=== PATIENT | male | born 1945 | race Caucasian/White ===

== ENCOUNTER 2016-10-19 08:23 | Day surgery (SDC) | payer MEDICARE, BC ==
[2016-10-17 10:25] VITALS: BMI 24.0
[~2016-10-19 08:23] MED LIST: LACTATED RINGERS 1,000 ML IV SCH
[2016-10-19 09:00] VITALS: RESP 16; TEMP 96.9
[2016-10-19] MEDS ORDERED: PROPOFOL 10 MG/ML 20 ML VIAL IV ONE (09:10)
[2016-10-19] MEDS ORDERED: LIDOCAINE 1% INJ 10MG/ML (20 ML MDV) ONE (09:10)
--- NOTE | 2016-10-19 09:56 | P.PCN ---
Date of Procedure: 10/19/16 Procedure(s) Performed: Procedures: 1. Esophagogastroduodenoscopy and biopsy. 2. Total colonoscopy. Preoperative diagnosis: Chronic reflux symptoms and recent change in bowel habits. Postoperative diagnosis: 1. Sliding hiatal hernia and short segment of Reynolsd' s esophagus. 2. Mild antral gastritis. 3. Sigmoid diverticulosis with no evidence of acute diverticulitis or strictures. 4. No polyps or cancer seen. 5. Low-grade internal hemorrhoids not bleeding at the time of this exam. Preparation: HalfLytely prep. Sedation: Was provided by anesthesia. Brief clinical history: The patient is a 70-year-old male who is referred for this evaluation because of chronic reflux symptoms requiring twice a day dosing of PPI as well as recent change in bowel habits with looser more frequent bowel movements. His last colonoscopy was in 2011 and his last upper endoscopy was 2008. Procedure: With the patient on his left lateral decubitus position and after informed consent and adequate sedation, I passed the Olympus-GIF 160 video upper endoscope through the cricopharyngeus down the esophagus. GE junction was around 40 cm from the incisors and there was a short Reynolds's segment as well as a small sliding hiatal hernia. The esophagus did not show any erosions or ulcers or any strictures. The endoscope was then passed into the stomach which was insufflated with air and inspected in detail including the retroflex view in the cardia. There was some mottling and erythema in the antrum but no ulcers or erosions. Pyloric channel, duodenal bulb, post bulbar area and descending duodenum appeared within normal limits. Because of his symptoms I obtained biopsies from the duodenum, antrum and esophagus including separate biopsies from the Reynolds's segment then the endoscope was withdrawn and I proceeded to do colonoscopy. Perianal area did not show any fissures or fistulas. There were no masses felt on digital rectal examination. The Olympus CFQ 160L video colonoscope was then inserted in the rectum in the usual fashion and advanced to the cecum. There were multiple diverticular orifices seen scattered in the sigmoid with no evidence of acute diverticulitis or strictures. No polyps or tumors were seen. In the retroflex view in the rectum, I noted low-grade internal hemorrhoids without any evidence of bleeding. The patient tolerated the procedure well. Plan: The patient was reassured. Will await biopsy results. Discussed dietary measures. I anticipate repeating his upper endoscopy in around 2 years.
[2016-10-19 10:29] VITALS: BP 133/76; PULSE 64
== END 2016-10-19 10:49 | disposition home or self-care (01) ==
LOC: ORWHC2ENDO 08:23
DX: K57.30 Diverticulosis of large intestine without perforation or abscess without bleeding (principal); K29.50 Unspecified chronic gastritis without bleeding; I10 Essential (primary) hypertension; K64.8 Other hemorrhoids; K22.70 Barrett's esophagus without dysplasia; K44.9 Diaphragmatic hernia without obstruction or gangrene; K21.9 Gastro-esophageal reflux disease without esophagitis; J45.909 Unspecified asthma, uncomplicated; Z79.899 Other long term (current) drug therapy
CPT/HCPCS: 88305; 88342; 45378; 43239; J2001; J2704; 99153

== ENCOUNTER → 2018-09-20 | Outpatient (CLI) | payer MEDICARE, BC ==
--- NOTE | 2018-09-20 10:21 | US ---
EXAMINATION TYPE: US venous doppler duplex LE RT DATE OF EXAM: 09/20/2018 10:10 AM COMPARISON: NONE CLINICAL HISTORY: M25.571 PAIN IN RT ANKLE,M79.7 FIBROMYALGIA. Partial achilles tear x 6 weeks ago. Ankle swelling at night. Calf tenderness. No hx of blood clots. Not on blood thinners. SIDE PERFORMED: Right TECHNIQUE: The lower extremity deep venous system is examined utilizing real time linear array sonog arturo with graded compression, doppler sonography and color-flow sonography. VESSELS IMAGED: External Iliac Vein (EIV) Common Femoral Vein Deep Femoral Vein Greater Saphenous Vein * Femoral Vein Popliteal Vein Small Saphenous Vein * Proximal Calf Veins (* superficial vessels) Grayscale, color doppler, spectral doppler imaging performed of the deep veins of the right lower ext remity. There is normal flow, compressibility, vascular waveforms. Right Leg: Negative for DVT IMPRESSION: No sonographic evidence of deep venous thrombosis within the right lower extremity.
== END | disposition home or self-care (01) ==
LOC: RADUSWWP 09:35
PROVIDERS: ATTEND Orthopaedic Surgery
DX: M25.571 Pain in right ankle and joints of right foot (principal)

== ENCOUNTER 2018-10-22 09:22 | Day surgery (SDC) | payer MEDICARE, BC ==
[2018-10-21 15:48] VITALS: BMI 24.4
[~2018-10-22 09:22] MED LIST changes: +LIDOCAINE 1% 20 ML VIAL (10MG/ML) FOR IV START INTRADERMA PRN; +MIDAZOLAM (PF) 2 MG/2 ML VIAL IV PRN
[2018-10-22 11:07] VITALS: RESP 16; TEMP 97.4
[2018-10-22] MEDS ORDERED: MIDAZOLAM 2 MG/2 ML VIAL ONE (11:21)
[2018-10-22] MEDS ORDERED: PROPOFOL 10 MG/ML 20 ML VIAL IV ONE (11:21)
[2018-10-22 11:51] VITALS: PULSE 78
[2018-10-22 12:16] VITALS: BP 114/73
--- NOTE | 2018-10-22 12:46 | P.PCN ---
Date of Procedure: 10/22/18 Procedure(s) Performed: Procedure: Esophagogastroduodenoscopy and biopsy. Preoperative diagnosis: History of Reynolds's esophagus. Postoperative diagnosis: Small sliding hiatal hernia and short segment of Reynolds's, multiple biopsies obtained from the Reynolds's segment. Preparation and sedation: Was provided by anesthesia. Brief clinical history: The patient is a 72-year-old male with history of Reynolds's esophagus. His last exam was in October 2016. Biopsies showed intestinal metaplasia consistent with Reynolds's esophagus and it was negative for dysplasia. The patient has been having issues of heartburn over the last several months despite taking PPI and H2 blockers in a twice a day regimen. Procedure: With the patient on his left lateral decubitus position and after informed consent and adequate sedation, I passed the Olympus-GIF H1 90 video upper endoscope through the cricopharyngeus down the esophagus. GE junction was irregular and started around 40 cm from the incisors and there was a short segment of Reynolds's and a small hiatal hernia as previously described measuring between 2-3 cm. There was no inflammation in the esophagus or any scarring. The endoscope was then passed into the stomach which was insufflated with air and inspected in detail including the retroflex view in the cardia. Finally, the endoscope was passed through the pylorus into the duodenum. The stomach, pyloric channel, duodenal bulb, post bulbar area and descending duodenum appeared within normal limits. I obtained multiple biopsies from the Reynolds's segment then the endoscope was withdrawn. The patient tolerated the procedure well. Plan: The patient was reassured. Will await biopsy results. Discussed dietary measures and antireflux measures and suggestions to optimize the timing of his meals and his medications. I anticipate repeating his upper endoscopy in 3 years. He will follow up with you as planned and I will be happy to see in the office if he has any issues.
== END 2018-10-22 12:28 | disposition home or self-care (01) ==
LOC: ORWHC2ENDO 09:22
DX: K22.70 Barrett's esophagus without dysplasia (principal); K21.9 Gastro-esophageal reflux disease without esophagitis; K44.9 Diaphragmatic hernia without obstruction or gangrene; I10 Essential (primary) hypertension; M79.7 Fibromyalgia; M54.9 Dorsalgia, unspecified; N40.0 Benign prostatic hyperplasia without lower urinary tract symptoms; Z79.891 Long term (current) use of opiate analgesic; Z79.899 Other long term (current) drug therapy
CPT/HCPCS: 88305; 43239; J2250; J2704

== ENCOUNTER 2021-04-18 08:34 | Day surgery (SDC) | payer MEDICARE, BC ==
[2021-04-13 11:14] VITALS: BMI 23.7
[~2021-04-18 08:34] MED LIST changes: +LIDOCAINE 1% (10MG/ML) FOR IV START INTRADERMA PRN; -LIDOCAINE 1% 20 ML VIAL (10MG/ML) FOR IV START INTRADERMA PRN; -MIDAZOLAM (PF) 2 MG/2 ML VIAL IV PRN
[2021-04-18 09:04] VITALS: RESP 16; TEMP 98.4
[2021-04-18] MEDS ORDERED: PROPOFOL 10 MG/ML 20 ML VIAL IV ONE (09:05)
[2021-04-18] MEDS ORDERED: LIDOCAINE 1% INJ 10MG/ML (20 ML MDV) ONE (09:05)
--- NOTE | 2021-04-18 09:42 | P.PCN ---
Date of Procedure: 04/18/21 Description of Procedure: Brief history: Patient is a 75-year-old male presenting for outpatient EGD and colonoscopy for evaluation of Reynolds's esophagus and hemorrhoid of the colon. Patient previously had EGD with findings of Reynolds's esophagus and is been monitored. He is on omeprazole therapy. Last colonoscopy in 2017. Denies any family history of colon cancer. Procedure performed: Esophagogastroduodenoscopy with biopsy Colonoscopy Estimated blood loss: Minimal. Preoperative diagnosis: Reynolds's esophagus, hemorrhoids of the colon, last colonoscopy 2016 Anesthesia: MAC Procedure: After informed consent was obtained from the patient was brought into the endoscopy unit and IV sedation was administered by anesthesia under continuous monitoring. Initially upper endoscopy was done. The Olympus GF 190 video endoscope was inserted into the mouth and esophagus intubated without any difficulty and was gradually advanced into the stomach and duodenum and carefully examined. The bulb and second part of the duodenum appeared normal, with biopsies taken. The scope was then withdrawn into the stomach adequately insufflated with air and upon careful examination the antrum and body, cardia and fundus appeared normal, except for some mild punctate scattered erythema in the antrum and body suggestive of mild gastritis with biopsies taken of the antrum and body. The scope was then withdrawn into the esophagus. The GE junction was located at 38 cm to the incisors, with a small hiatal hernia noted. There were a few small tongues of salmon-colored mucosa consistent with history of Reynolds's esophagus with biopsies of lower esophagus taken in this area. It appeared regular with no erythema erosions or ulcerations. Rest of the esophagus appeared normal. Patient tolerated the procedure well. At this time the patient continued to remain sedation. Initial digital rectal examination was normal. Olympus CF 190 video colonoscope was then inserted into the rectum and gradually advanced to the cecum without any difficulty. Careful examination was performed as the scope was gradually being withdrawn. The prep was excellent. The cecum, ascending colon, transverse colon, descending colon, sigmoid colon and rectum appeared normal, multiple small large mouth diverticula noted in the left colon.. Retroflexion was performed in the rectum and no lesions were noted, moderate internal hemorrhoids noted. Patient tolerated the procedure well. Impression: 1. Mild gastritis. Small hiatal hernia. Reynolds's esophagus. Biopsies of the duodenum, antrum body and lower esophagus. 2. Moderate left colonic diverticulosis. Internal hemorrhoids. Recommendations: Findings of this examination were discussed with the patient as well as his family. Okay to resume diet. Okay to resume medications. Await pathology from biopsies. Continue current medical management. Recommend repeat EGD in 2 years for history of Reynolds's esophagus. Repeat colonoscopy in 10 years for screening for malignant neoplasm of the colon if medically stable at that time and amenable to further screening.
[2021-04-18 10:04] VITALS: BP 127/74; PULSE 62
== END 2021-04-18 10:18 | disposition home or self-care (01) ==
LOC: ORWHC2ENDO 08:34
PROVIDERS: ATTEND Internal Medicine
DX: K29.70 Gastritis, unspecified, without bleeding (principal); K22.70 Barrett's esophagus without dysplasia; K44.9 Diaphragmatic hernia without obstruction or gangrene; K57.30 Diverticulosis of large intestine without perforation or abscess without bleeding; K21.9 Gastro-esophageal reflux disease without esophagitis; K64.8 Other hemorrhoids; Z90.89 Acquired absence of other organs; Z98.890 Other specified postprocedural states; Z79.891 Long term (current) use of opiate analgesic; Z79.899 Other long term (current) drug therapy
CPT/HCPCS: 88305; 45378; 43239; J2001; J2704

== ENCOUNTER → 2021-04-25 | Outpatient (CLI) | payer MEDICARE, BC ==
[2021-04-25 12:27] VITALS: BP 157/86; PULSE 74; RESP 18; TEMP 98
--- NOTE | 2021-04-25 12:56 | P.PAINCN ---
History of Present Illness - Reason for Consult Consult date: 04/25/21 - History of Present Illness 72 see his old male with a chronic history of severe neck pain and low back pain, he is diagnosed with lumbar spondylosis with lumbar facet arthropathy and lumbar radiculopathy and cervical spondylosis with cervical facet arthropathy and cervical foraminal stenosis, cervical degenerative disc disease, and was treated at [facility] ,he had RFA of the medial branch lumbar area,A transforaminal epidural and cervical epidural steroid injection, tima Martínez reported that he had excellent pain relief after interventional pain procedure, and he is complaining of severe low back pain which is constant and increases with any activity, interfer with the quality of life, she currently uses Celebrex and alternatives without any significant relief he tried physical therapy and his currently doing home exercise, he continued to have severe pain, and still the pain is 7/10 increased with any activity, he denies any motor or sensory deficit he denies any fever or night sweats Past Medical History Past Medical History: Fibromyalgia, GERD/Reflux, Hypertension, Prostate Disorder Additional Past Medical History / Comment(s): CHRONIC BACK PAIN, STATES HTN IS CONTROLLED BY TERAZOSIN, Reynolds's esophagus History of Any Multi-Drug Resistant Organisms: None Reported Past Surgical History: Orthopedic Surgery, Tonsillectomy Additional Past Surgical History / Comment(s): LUPILLO CATARACTS, PAIN INJECTIONS FOR BACK, LEFT WRIST BONE GRAFT, LEFT WRIST CARPAL TUNNEL, EGD,colonoscopy Past Anesthesia/Blood Transfusion Reactions: No Reported Reaction Smoking Status: Never smoker - Past Family History Brother(s) Family Medical History: Cancer Additional Family Medical History / Comment(s): LUNG Medications and Allergies Home Medications Medication Instructions Recorded Confirmed Type Montelukast [Singulair] 10 mg PO DAILY PRN 10/17/16 04/25/21 History Omeprazole 40 mg PO BID 10/17/16 04/25/21 History Terazosin [Hytrin] 2 mg PO HS 10/17/16 04/25/21 History traMADol HCL [Ultram] 50 mg PO Q6H PRN 10/17/16 04/25/21 History Fluticasone Nasal [place] [Flonase 2 spr EA NOSTRIL DAILY 10/21/18 04/25/21 History Nasal [place]] Celecoxib [CeleBREX] 400 tab PO DAILY PRN 10/22/18 04/25/21 History Famotidine [Pepcid] 40 mg PO DAILY 04/13/21 04/25/21 History Melatonin 5 mg PO HS PRN 04/13/21 04/25/21 History diphenhydrAMINE [Benadryl] 50 mg PO HS PRN 04/13/21 04/25/21 History Allergies Allergy/AdvReac Type Severity Reaction Status Date / Time No Known Allergies Allergy Verified 04/20/21 09:23 Physical Exam Vitals: Vital Signs Temp Pulse Resp BP Pulse Ox 04/25/21 12:21 98.0 F 74 18 157/86 99 Physical Examinations : -Constitutiona : Cooperative , not in acute distress . -HEENT : nech : supple , no Lymphadenopathy , normal thyroid size . : eyes : no ptosis , no icterus, no photophobia . - neurologic : Cranial nerve II to XII intact , no focal neurological deffecit . -psychatric : alert , oriented X 3 , appropriate affect , intact judgment and insight . -Lymphatic : no Lymphadenopathy . - musculoskeltal : Cervical Spine motor stregnth in the deltoid and biceps, normal right side , normal Left side motor stregnth biceps and the wrist extensors normal right side ,normal left side . motor stregnth in the triceps muscle . normal Right side , normal Left side deep tendon reflexes normal at the biceps , normal at Brachioradialis , normal at triceps. cervical facet loading test: Positive Bilaterally Spurling test= positive Right , positive left. Neck distraction test= positive Right , positive left. Yuridia sign= positive right, positive left . Lumber spine moter stegnth lower extremities ,thigh and legs 5/5 Right side , 5/5 Left side deep tendon reflexes : normal Knee Jerk , normal ankle Jerk lumber facet Loading Test =positive Right , positive Left Range of motion of the lumbar spine Flexion 30 degrees, extension 10 degrees strait leg raising test = positive at 30 degree Fabere test= positive Right , and positive LT . tenderness over the Sacroiliac joint on the Right , and Left sides Results Comments: MRI of the lumbar spine multilevel lumbar degenerative disc disease and borderline central canal stenosis and multilevel lumbar facet arthropathy MRI of the cervical spine multilevel degenerative disc disease and foraminal stenosis and facet arthropathy Assessment and Plan Plan: Assessment and plan=1-lumbar degenerative disc disease. 2-lumbar spondylosis with lumbar facet arthropathy. 3-cervical degenerative disc disease. 4-cervical spondylosis with cervical facet arthropathy. he could benefit from repeat RFA of the medial branch lumbar area at L3, L4, L5, bilaterally Time with Patient: Greater than 30 PQRS Measure Charge Sheet Measure #130: Documentation of Current Meds in Medical Chart: Patient's medications documented in chart Measure #226: Tobacco Use: Screen & Cessation Intervention: Pt not a tobacco user Measure #111: Pneumonia Vaccination: Pneumococcal vaccine NOT administered or previously given Measure #47: Advance Care Plan: Advance care planning discussed & documented, pt chose/unable to give Measure #412: Opioid Treatment Agreement: No documentation of signed opioid treatment agreement Measure #408: Opioid Therapy Follow-up Evaluation: Patient had NO f/u eval minimum every 3 months during opioid therapy Measure #317: Preventitive Care & Scrn High Bld Press & F/U: Pre-hypertensive or hypertensive BP documented, pt will f/u with PCP Measure #128: Body Mass Index (BMI) Screening & Follow-up: BMI documented within normal parameters Measure #131: Pain Assessment & Follow-up: Pain positive & plan documented, Follow-up scheduled Measure #431: Unhealthy Alcohol Use Preventative Care & Scrn: Patient not identified as an unhealthy alcohol user PQRS Narrative: Smoking Status Never smoker Blood Pressure 157/86 Pain Intensity [Neck] 8 Pain Intensity [Lower Back] 6 Scale Used Numeric (1 - 10) Hx Alcohol Use (MH) Yes Home Medications: Ambulatory Orders Montelukast [Singulair] 10 mg PO DAILY PRN 10/17/16 Omeprazole 40 mg PO BID 10/17/16 Terazosin [Hytrin] 2 mg PO HS 10/17/16 traMADol HCL [Ultram] 50 mg PO Q6H PRN 10/17/16 Fluticasone Nasal [place] [Flonase Nasal [place]] 2 spr EA NOSTRIL DAILY 10/21/18 Celecoxib [CeleBREX] 400 tab PO DAILY PRN 10/22/18 Famotidine [Pepcid] 40 mg PO DAILY 04/13/21 Melatonin 5 mg PO HS PRN 04/13/21 diphenhydrAMINE [Benadryl] 50 mg PO HS PRN 04/13/21
== END | disposition home or self-care (01) ==
LOC: PNWHC3 12:12
PROVIDERS: ATTEND Specialist
DX: M41.26 Other idiopathic scoliosis, lumbar region (principal); M47.896 Other spondylosis, lumbar region; M51.36 Other intervertebral disc degeneration, lumbar region; M48.061 Spinal stenosis, lumbar region without neurogenic claudication; M46.96 Unspecified inflammatory spondylopathy, lumbar region
CPT/HCPCS: 99211

== ENCOUNTER 2021-05-13 11:16 | Day surgery (SDC) | payer MEDICARE, BC ==
[2021-05-10 15:14] VITALS: BMI 23.1
[2021-05-13 11:49] VITALS: TEMP 97.2
[2021-05-13] MEDS ORDERED: LACTATED RINGERS 1,000 ML IV ONE ×3 (11:50→12:33)
[2021-05-13] MEDS ORDERED: methylPREDNISolone ACETATE 40 MG/ML 1 ML VIAL ONE (11:58)
[2021-05-13] MEDS ORDERED: ROPIVACAINE 5MG/ML 20ML VIAL ONE (11:58)
[2021-05-13] MEDS ORDERED: MIDAZOLAM 2 MG/2 ML VIAL ONE (12:00)
[2021-05-13] MEDS ORDERED: fentaNYL (PF) 50 MCG/ML 2 ML AMP ONE (12:00)
--- NOTE | 2021-05-13 12:30 | P.PCN ---
Date of Procedure: 05/13/21 Procedure(s) Performed: PREOPERATIVE DIAGNOSIS: 1-Lumbar Spondylosis with Facet Arthropathy without myelopathy. 2- Lumber degenerative disc disease. POSTOPERATIVE DIAGNOSIS: 1- Lumbar Spondylosis with Facet Arthropathy without myelopathy. 2- Lumber degenerative disc disease. PROCEDURES : Bilateral Radiofrequency thermocoagulation, L3 , L4 , and L5 medial branch, with fluoroscopic guidance (fluoroscopy images available in the radiology department) ( to denervate the facet joint at Bilateral L4-5 ,and L5-S1 levels ). ANESTHESIA: monitered anesthesia care ,as per anesthesia department . EBL: Minimal PROCEDURE INDICATION: The patient with low back pain secondary to lumbar facet arthropathy who had more than 50% relief of her pain with previous diagnostic lumbar medial branch block with bupivacaine. PROCEDURE DESCRIPTION / TECHNIQUE: The patient was seen and identified in the preoperative area. Risks, benefits, complications, including but not limited to risk of infection ,bleeding , allergic reactions to the medications and no complete pain releife , and alternatives were discussed with the patient, the patient agreed to proceed with the procedure and signed the consent. IV was started. Vital signs remained stable throughout the procedure. Patient was taken to the OR and time out was completed. The patient was placed in the prone position on the procedure table. The lumber area was prepped and draped in the usual sterile fashion. . Vital signs were closely monitored during the procedure .IV sedation was used during the procedure to decrease patients anxiety. Using AP and then oblique fluoroscopy, the ``eye of the Edenilson dog co rresponding to the connection between the superior and transverse articular processes of right L3, L4, and L5 were identified, marked, and localized with 1% lidocaine. Subsequently, a [id number] radiofrequency cannula with a 10- mm active tip was advanced guided by fluoroscopy to each of the``eyes of the Edenilson dog at right L3, L4, and L5. Each site then underwent sensory testing at 50 Hz and 0 to 1 volt and motor testing at 2.5 Hz and 0 to 3 volt with local stimulation, but no radicular symptoms down the legs. Thereafter each sites underwent radiofrequency thermocoagulation at 80 degrees celsius for 90 seconds after injecting 0.5 ml of PF Ropivacaine 1ml, then after the thermocoagulation done , 1 ml of the block solution containing Depo-Medrol 20 mg and 3 ml of Ropivacaine 0.5% was injected at the right L3 , L4 , and L5 , levels after negative aspiration of CSF and blood and with no paresthesias. Cannulas were retracted while injecting lidocaine 1% until the needle is out. The same procedure was repeated at the level of Left L3, L4, and L5 levels. At the end of the procedure, the skin was cleansed and bandages were applied. COMPLICATIONS: No acute complications. DISPOSITION / PLANS: The patient was placed in a supine position and transferred to the recovery area in a stable condition for observation and was discharged from the recovery room after meeting discharge criteria. Home discharge instructions given to the patient by the staff. The patient was reexamined prior to discharge. The patient will schedule a follow up in the clinic in 2-4 weeks.
[2021-05-13 12:36] VITALS: RESP 16
[2021-05-13 12:49] VITALS: BP 144/84; PULSE 63
[2021-05-13] MEDS ORDERED: IV FLUID CONTINUATION 550 ML IV ONE (12:54)
--- NOTE | 2021-05-13 13:48 | FL ---
Fluoroscopy HISTORY: Pain 12 seconds fluoroscopy time supplied to the referring clinician. 6 intraoperative C-arm images docum ent the procedure. See dictated report from anesthesia.
== END 2021-05-13 13:03 | disposition home or self-care (01) ==
LOC: ORPAIN 11:16
PROVIDERS: ATTEND Specialist
DX: M47.816 Spondylosis without myelopathy or radiculopathy, lumbar region (principal); M51.36 Other intervertebral disc degeneration, lumbar region
CPT/HCPCS: 64635; 64636; J2250; J1030; J3010; J2795

== ENCOUNTER → 2021-06-13 | Outpatient (CLI) | payer MEDICARE, BC ==
[2021-06-13 14:06] VITALS: BP 163/84; PULSE 75; RESP 18; TEMP 97.8
--- NOTE | 2021-06-13 14:11 | P.PAINPG ---
Subjective Progress Note Date: 06/13/21 Principal diagnosis: Neck pain, and lumbar back pain Mr. Dobbs is a 75 -year-old pleasant male came to the [facility] pain clinic for follow-up visit . Patient has ongoing pain for many years for lumbar back pain, and cervical area . patient had cervical epidural in 2018 at [facility] which helped tremendous pain relief for more than a year. Patient describes pain is aching, throbbing, constant type of pain. Pain is radiating to bilateral mid arm area, not going below the elbow. Patient rated pain levels are 7-8 out of 10 in severity. Patient had great pain relief with bilateral lumbar radiofrequency ablation. Still helping him. Activities making pain worse. Medications, resting, interventional procedures helping in relieving patient's pain. Patient pain some days better than others. Overall activities decreased secondary to pain. Because of the pain sometimes patient is feeling lack of sleep, interest, and energy. Denied any side effects with the medications. Denied any bowel or bladder problems at this time. Patient is not using any walking support. Patient denies any suicidal or homicidal ideations intent or plan. Patient denies any auditory or visual hallucinations. Patient denied any red flag symptoms related to pain. Objective - Vital Signs Vital signs: Intake & Output 06/12/21 06/13/21 06/13/21 18:59 06:59 18:59 Weight 79.379 kg - Exam General: Well-developed, well-nourished, no acute distress HEENT: Normocephalic, and atraumatic Neck: Supple, no neck swelling Psychiatric: Appropriate mood, and affect RADIATION ONCOLOGY THERAPIST: No noticeable focal neurological deficits Musculoskeletal: Upper extremity: Normal strength, and range of motion. Sensation grossly intact Lower extremity: Normal strength, and range of motion Lumbar spine: Paravertebral tenderness: positive Lumbar facet load test : positive Strait leg raising test: Negative Sacroiliac joint tenderness: Positive Cervical spine: Paravertebral tenderness: Positive Cervical spine facet curtis: Positive Cervical spine Spurling test: Negative - Constitutional Constitutional Comment(s): 13 point review of symptoms negative except as mentioned in the history of present illness. Assessment and Plan Assessment: Lumbar spondylosis without myelopathy Myofascial pain syndrome, and chronic pain syndrome Cervical spondylosis without myelopathy Cervical disc protrusion at C6-C7, and C5-C6 Plan: #1 psychological risk tools were reviewed. Diagnoses, prognosis, and multiple treatment options including but not limited to physical therapy, interventional therapy, adjunct medication therapy, complementary alternative medicine options, narcotic medication, and surgical options were discussed with the patient. And all questions were answered to the patient's satisfaction. #2 treatment plan agreement : Patient was thoroughly discussed regarding the treatment options, alternatives, and importance of exercises as tolerated. Patient clearly understood. #3 Patient was counseled on importance of regular exercise. Including eliecer chi, aerobic exercises as tolerated. Which helps for chronic pain, and overall well- being. Patient also counseled regarding importance of weight control role in chronic pain, and overall other health issues. By altering diet habits, minimizing sugar intake, & processed foods helps in minimizing Inflammation. #4 investigations: MAPS- reviewed , urine drug test- not done #5 diagnostic tests: None #6 consultation : None # 7 interventional procedures: Cervical C6-C7 epidural steroid injection . Procedure, complications, alternatives discussed with the patient. #8 medications #1 magnesium oxide 400 mg by mouth daily Medication side effects, complications, long-term consequences discussed with the patient. Patient recommended to contact the pain clinic if noticed any issues with given medications. #9 morphine milligrams equivalents dose ( MME) per day: 0 from the pain clinic. #10 disposition: scheduled to follow up with pain clinic in 4 weeks duration. PQRS Measure Charge Sheet Measure #130: Documentation of Current Meds in Medical Chart: Patient's medications documented in chart Measure #226: Tobacco Use: Screen & Cessation Intervention: Pt not a tobacco user Measure #111: Pneumonia Vaccination: Pneumococcal vaccine administered or previously received Measure #47: Advance Care Plan: Advance care planning discussed & documented, plan or surrogate given Measure #412: Opioid Treatment Agreement: No documentation of signed opioid treatment agreement Measure #408: Opioid Therapy Follow-up Evaluation: Patient had NO f/u eval minimum every 3 months during opioid therapy Measure #317: Preventitive Care & Scrn High Bld Press & F/U: Pre-hypertensive or hypertensive BP documented, pt will f/u with PCP Measure #128: Body Mass Index (BMI) Screening & Follow-up: BMI documented within normal parameters Measure #131: Pain Assessment & Follow-up: Pain positive & plan documented Measure #431: Unhealthy Alcohol Use Preventative Care & Scrn: Patient not identified as an unhealthy alcohol user PQRS Narrative: Smoking Status Never smoker Home Medications: Ambulatory Orders Montelukast [Singulair] 10 mg PO DAILY PRN 10/17/16 Omeprazole 40 mg PO BID 10/17/16 Terazosin [Hytrin] 2 mg PO HS 10/17/16 traMADol HCL [Ultram] 50 mg PO Q6H PRN 10/17/16 Fluticasone Nasal [place]on [Flonase Nasal [place]] 2 spr EA NOSTRIL DAILY PRN 10/21/18 Celecoxib [CeleBREX] 400 tab PO DAILY PRN 10/22/18 Famotidine [Pepcid] 40 mg PO DAILY 04/13/21 Melatonin 5 mg PO HS PRN 04/13/21 diphenhydrAMINE [Benadryl] 50 mg PO HS PRN 04/13/21 Controlled Substance Measures - Controlled Substance Measures Is patient prescribed a controlled substance at discharge?: No
== END | disposition home or self-care (01) ==
LOC: PNWHC3 13:22
DX: M47.816 Spondylosis without myelopathy or radiculopathy, lumbar region (principal); M47.892 Other spondylosis, cervical region; M50.223 Other cervical disc displacement at C6-C7 level
CPT/HCPCS: 99211

== ENCOUNTER 2021-07-05 06:11 | Day surgery (SDC) | payer MEDICARE, BC ==
[2021-07-04 11:18] VITALS: BMI 23.1
[~2021-07-05 06:11] MED LIST changes: -LIDOCAINE 1% (10MG/ML) FOR IV START INTRADERMA PRN
[2021-07-05 06:45] VITALS: TEMP 97
[2021-07-05] MEDS ORDERED: IOPAMIDOL M200 10 ML VIAL ONE (06:56)
[2021-07-05] MEDS ORDERED: DEXAMETHASONE SOD PHOSPHATE 10 MG/ML 1 ML VIAL ONE (06:56)
[2021-07-05] MEDS ORDERED: MIDAZOLAM 2 MG/2 ML VIAL ONE (06:56)
[2021-07-05] MEDS ORDERED: fentaNYL (PF) 50 MCG/ML 2 ML AMP ONE (06:56)
--- NOTE | 2021-07-05 07:15 | P.PCN ---
Date of Procedure: 07/05/21 Procedure(s) Performed: . PROCEDURE 1. Cervical epidural steroid injection under fluoroscopic guidance, C6-7 (fluoroscopy images available in the radiology department ) 2. Cervical epidurogram. PREOPERATIVE DIAGNOSIS: 1- Cervical Degenerative Disc Diseases 2-cervical spondylosis with cervical Facet arthropathy without myelopathy POSTOPERATIVE DIAGNOSIS: : 1- Cervical Degenerative Disc Diseases , 2-cervical spondylosis with cervical Facet arthropathy without myelopathy ANESTHESIA: Local anesthesia with lidocaine 1 % , and moderate sedation, with Versed 2 mg and Fentanyl 50 mcg. EBL 0 PROCEDURE INDICATION: The patient with neck pain and radiculitis unresponsive to conservative treatment consents for procedure. PROCEDURE DESCRIPTION / TECHNIQUE: The patient was seen and identified in the preoperative area. Risks, benefits, complications, including but not limited to infections ,bleeding , allergic reactions to the medications ,and not complete pain releife, and alternatives were discussed with the patient, the patient agreed to proceed with the procedure and signed the consent. Patient was taken to the OR and time out was completed. The patient was placed in the prone position on the procedure table. A pillow was placed under the patients chest to increase the cervical interlaminar space. The cervical area was prepped and draped in the usual sterile fashion. Vital signs were closely monitored during the procedure. Conscious sedation was used during the procedure to decrease patients anxiety. Using anterior-posterior fluoroscopy, the C6-7 interlaminar space was identified and the skin over this site was marked and then infiltrated with 1% lidocaine subcutaneously. Subsequently, a 20-gauge 3-1/2-inch Tuohy epidural needle was inserted and advanced toward the epidural space by means of the ``hanging-drop technique and guided by AP and lateral fluoroscopy. The correct needle position in the epidural space was verified with the injection of 2 mL of the water soluble contrast dye Isovue-200 and observing an excellent epidurogram with the epidural spread of the dye, after negative aspiration for blood and CSF and in the absence of paresthesias. then, mixture containing 15 mg Dexamethasone and 2 ml of preservative-free normal saline injected and a washout of epidurogram was seen. Needle was withdrawn intact, skin was cleansed, and bandages were applied. Complications= none. Disposition= patient was placed in supine position and transferred to the recovery room area in stable condition and there was no evidence of upper or lower extremity motor or sensory deficit after the procedure patient was discharged from recovery room after discharge criteria met and home discharge instructions was given by the staff and patient will follow with the pain clinic in 2-4 weeks
[2021-07-05 07:17] VITALS: BP 147/75; PULSE 64; RESP 15
[2021-07-05] MEDS ORDERED: LACTATED RINGERS 1,000 ML IV ONE (07:20)
[2021-07-05] MEDS ORDERED: IV FLUID CONTINUATION 600 ML IV ONE (07:20)
--- NOTE | 2021-07-05 10:44 | FL ---
Fluoroscopy HISTORY: Pain 2 seconds fluoroscopy time supplied to the referring clinician. 1 intraoperative C-arm images document the procedure. See dictated report from anesthesia.
== END 2021-07-05 07:45 | disposition home or self-care (01) ==
LOC: ORPAIN 06:11
PROVIDERS: ATTEND Specialist
DX: M47.812 Spondylosis without myelopathy or radiculopathy, cervical region (principal); F41.9 Anxiety disorder, unspecified
CPT/HCPCS: 62321; 99152

== ENCOUNTER → 2021-07-27 | Outpatient (CLI) | payer MEDICARE, BC ==
[2021-07-27 09:41] VITALS: RESP 18
--- NOTE | 2021-07-27 09:50 | P.PN ---
Subjective Progress Note Date: 07/27/21 Lynne is a 75-year-old male presented to clinic today for follow-up appointment after a cervical epidural steroid injection at C6 7 on July 05. He has a history of cervical spondylosis with facet arthropathy without myelopathy, cervical degenerative disc disease, lumbar spondylosis and facet arthropathy without myelopathy, lumbar degenerative disc disease and fibromyalgia. He puts that he got limited relief from the cervical epidural steroid injection. He reports that he is having pain at the base of his neck and both shoulders. He describes it as a sharp aching pain. It is worse with sleeping on the side as well as overhead movement. Also complaining of bilateral hip pain. Which he states worse is laying on his side and excessive walking. He denies any bowel or bladder dysfunction, saddle anesthesia, or any other red flag symptoms. Objective - Exam Physical Examinations : -Constitutiona : Cooperative , not in acute distress . -HEENT : nech : supple , no Lymphadenopathy , normal thy roid size . : eyes : no ptosis , no icterus, no photophobia . - neurologic : Cranial nerve II to XII intact , no focal neurological deffecit . -psychatric : alert , oriented X 3 , appropriate affect , intact judgment and insight . -Lymphatic : no Lymphadenopathy . - musculoskeltal : Cervical Spine motor stregnth in the deltoid and biceps, normal right side , normal Left side motor stregnth biceps and the wrist extensors normal right side ,normal left side . motor stregnth in the triceps muscle . normal Right side , normal Left side deep tendon reflexes normal at the biceps , normal at Brachioradialis , normal at triceps. cervical facet loading test: Positive Bilaterally Spurling test= positive Right , positive left. Neck distraction test= positive Right , positive left. Yuridia sign= negative Lumber spine moter stegnth lower extremities ,thigh and legs 5/5 Right side , 5/5 Left side deep tendon reflexes : normal Knee Jerk , normal ankle Jerk lumber facet Loading Test =positive Right , positive Left Range of motion of the lumbar spine Flexion 30 degrees, extension 10 degrees strait leg raising test = negative Fabere test= positive Right , and positive LT . Sever tenderness over the Sacroiliac joint on the Right , and Left sides Gaenslen test= positive right ,and positive left . Seated flexion test= positive right ,and positive Left . Distraction test= positive bilaterally Sacroiliac compression test= positive bilaterally Severe tenderness to palpation bilateral greater trochanteric bursa Assessment and Plan Assessment: Assessment and plan Assessment: Cervical spondylosis with facet arthropathy without myelopathy Cervical degenerative disc disease Lumbar spondylosis with facet arthropathy without myelopathy Lumbar degenerative disc disease Sacroiliac joint dysfunction Fibromyalgia Plan: Patient could benefit from bilateral greater trochanteric bursa injections under ultrasound guidance Consider bilateral SI joint injections in the future Consider repeat radiofrequency ablation of the lumbar area in the future Follow-up 2-[address] Baliey was available by phone for consultation during his visit. I have spent 28 minutes on patient care today. The time was used to review the medical records including relevant urine studies and Prescription history (MAPs), review of the available imaging, evaluation and examination of the patient, coordination of care with the medical staff and if applicable referring physicians, as well as creation of the medical record. - PQRS measures = - Patient's medications are documented in the chart. -Tobacco use is negative -Patient's has not received pneumococcal vaccine. -Advanced care planning discussed, patient not eligible. -Opiate contract signed. -Pain positive and follow-up visit/procedure is scheduled. -Patient's blood pressure measured 146/83 , and documented in the record ,and patient will follow up with the primary care. -Patient was not identified as an unhealthy alcohol user Time with Patient: Less than 30
[2021-07-27 10:00] VITALS: BP 146/83; PULSE 69; TEMP 98
== END ==
LOC: PNWHC3 09:11
PROVIDERS: ATTEND Student in an Organized Health Care Education/Training Program
DX: M47.812 Spondylosis without myelopathy or radiculopathy, cervical region (principal); M50.30 Other cervical disc degeneration, unspecified cervical region; M47.816 Spondylosis without myelopathy or radiculopathy, lumbar region; M51.36 Other intervertebral disc degeneration, lumbar region; M53.3 Sacrococcygeal disorders, not elsewhere classified; M79.7 Fibromyalgia
CPT/HCPCS: 99211

== ENCOUNTER 2021-08-09 12:15 | Day surgery (SDC) | payer MEDICARE, BC ==
[2021-08-09] MEDS ORDERED: LACTATED RINGERS 1,000 ML IV ONE (12:39)
[2021-08-09 12:52] VITALS: TEMP 97.7
[2021-08-09] MEDS ORDERED: ROPIVACAINE 5MG/ML 20ML VIAL ONE (13:03)
[2021-08-09] MEDS ORDERED: methylPREDNISolone ACETATE 40 MG/ML 1 ML VIAL ONE (13:03)
[2021-08-09] MEDS ORDERED: MIDAZOLAM 2 MG/2 ML VIAL ONE (13:03)
[2021-08-09] MEDS ORDERED: fentaNYL (PF) 50 MCG/ML 2 ML AMP ONE (13:03)
--- NOTE | 2021-08-09 13:21 | P.PCN ---
Date of Procedure: 08/09/21 Procedure(s) Performed: Pre OP diagnoses=1- bilateral trochanteric bursitis . 2-lumbar spondylosis with lumbar facet arthropathy. 3-lumbar degenerative disc disease Postoperative diagnosis= bilateral trochanteric bursitis. Operation= bilateral trochanteric bursa steroid injection under fluoroscopy guidance.(The fluoroscopy images on file in Radiology department ) Anesthesia= moderate sedation with IV , Versed 2 mg and fentanyl 50 micrograms and local infiltration with Ropivacaine 0. 5 % 4 mL . Complications= none . Description of the procedure= patient had history of severe low back pain and hip pain secondary to trochanteric bursitis for this reason patient was a good candidate to have bilateral trochanteric bursa steroid injection which hopefully it will help his pain, risks and benefits of the procedure including but not limited to risk of infection and bleeding and not complete pain relief and ALLERGIC reaction to medication discussed with the patient and the alternative also discussed with the patient and he agreed with the preceding taken to the operating room placed in prone position or standard monitors applied patient and after induction of anesthesia the back and the hip area prepped with chlorhexidine 3 times, and under sterile technique using 22-gauge needle for skin and subcutaneous tissue infiltration was first admitted the right trochanteric bursa injection at 22-gauge Quincke-type spinal needle advanced slowly under fluoroscopy and placed in the right trochanteric bursa needle placement confirmed with AP and lateral view and after appropriate needle placement confirmed under fluoroscopy 5 ML of Ropivacaine 0.5% mixed with 20 mg of Depo-medrol injected after negative aspiration for heme and there was no CSF and there was no paresthesia during the injection and needle removed and a dressing applied and the same procedure repeated at the left side, patient tolerated the procedure well without any complication and she will follow up with the pain clinic in a few weeks and patient discharged home in stable condition
[2021-08-09 13:55] VITALS: BP 145/79; PULSE 58; RESP 16
--- NOTE | 2021-08-09 14:05 | FL ---
EXAMINATION TYPE: FL guidance operating room DATE OF EXAM: 08/09/2021 HISTORY: Fluoroscopy time 6 seconds of fluoroscopy provided. IMPRESSION: 1. Fluoroscopy time.
== END 2021-08-09 14:10 | disposition home or self-care (01) ==
LOC: ORPAIN 12:15
PROVIDERS: ATTEND Specialist
DX: M70.61 Trochanteric bursitis, right hip (principal); M70.62 Trochanteric bursitis, left hip; M47.816 Spondylosis without myelopathy or radiculopathy, lumbar region; M51.36 Other intervertebral disc degeneration, lumbar region
CPT/HCPCS: 77002; 20610; J2250; J1030; J3010; J2795; 76942; 99152

== ENCOUNTER → 2021-08-29 | Outpatient (CLI) | payer MEDICARE, BC ==
--- NOTE | 2021-08-29 13:15 | P.PN ---
Subjective Progress Note Date: 08/29/21 This is follow up visite for this 75 years old male with history of severe neck pain ,and low back pain, he is diagnosed with lumbar spondylosis with lumbar facet arthropathy and lumbar radiculopathy and cervical spondylosis with cervical facet arthropathy and cervical foraminal stenosis, cervical degen erative disc disease, previously we held on RFA of the medial branch lumbar area and can get good pain relief, and we have done cervical epidural steroid injection had minimal benefit from it, he is complaining of generalized pain in the back area and he had severe bilateral shoulder pain, constant and increases with any activity, interfer with the quality of life, he tried physical therapy and his currently doing home exercise, he continued to have severe pain, he continued to use Ultram 50 mg every 6 hours when necessary and Celebrex 200 mg daily , denies any side effect of the medication Physical Examinations : -Constitutiona : Cooperative , not in acute distress . -HEENT : nech : supple , no Lymphadenopathy , normal thyroid size . : eyes : no ptosis , no icterus, no photophobia . - neurologic : Cranial nerve II to XII intact , no focal neurological deffecit . -psychatric : alert , oriented X 3 , appropriate affect , intact judgment and insight . -Lymphatic : no Lymphadenopathy . - musculoskeltal : Cervical Spine motor stregnth in the deltoid and biceps, normal right side , normal Left side motor stregnth biceps and the wrist extensors normal right side ,normal left side . motor stregnth in the triceps muscle . normal Right side , normal Left side deep tendon reflexes normal at the biceps , normal at Brachioradialis , normal at triceps. cervical facet loading test: Positive Bilaterally Spurling test= positive Right , positive left. Neck distraction test= positive Right , positive left. Yuridia sign= positive right, positive left . Abduction and adduction and rotation of both shoulders associated with pain In the last tenderness in the cervical paraspinal muscles and thoracic paraspinal muscles Lumber spine moter stegnth lower extremities ,thigh and legs 5/5 Right side , 5/5 Left side deep tendon reflexes : normal Knee Jerk , normal ankle Jerk lumber facet Loading Test =positive Right , positive Left Range of motion of the lumbar spine Flexion 30 degrees, extension 10 degrees strait leg raising test = positive at 30 degree Fabere test= positive Right , and positive LT . tenderness over the Sacroiliac joint on the Right , and Left sides Results Comments: MRI of the lumbar spine multilevel lumbar degenerative disc disease and borderline central canal stenosis and multilevel lumbar facet arthropathy MRI of the cervical spine multilevel degenerative disc disease and foraminal stenosis and facet arthropathy Assessment and Plan Plan: Assessment and plan=1-lumbar degenerative disc disease. 2-lumbar spondylosis with lumbar facet arthropathy. 3-cervical degenerative disc disease. 4-cervical spondylosis with cervical facet arthropathy. 5-Bilateral shoulder arthralgia. 6-myofascial pain syndrom versus fibromyalgia Description could benefit from Lyrica 25 mg twice a day prescription. In risk and benefits and alternatives of Lyrica discussed with the patient and he agreed with proceeding PQRS Measure Charge Sheet Measure #130: Documentation of Current Meds in Medical Chart: Patient's medications documented in chart Measure #226: Tobacco Use: Screen & Cessation Intervention: Pt not a tobacco user Measure #111: Pneumonia Vaccination: Pneumococcal vaccine NOT administered or previously given Measure #47: Advance Care Plan: Advance care planning discussed & documented, pt chose/unable to give Measure #412: Opioid Treatment Agreement: No documentation of signed opioid treatment agreement Measure #408: Opioid Therapy Follow-up Evaluation: Patient had NO f/u eval minimum every 3 months during opioid therapy Measure #317: Preventitive Care & Scrn High Bld Press & F/U: Pre-hypertensive or hypertensive BP documented, pt will f/u with PCP Measure #128: Body Mass Index (BMI) Screening & Follow-up: BMI documented within normal parameters Measure #131: Pain Assessment & Follow-up: Pain positive & plan documented, Follow-up scheduled Measure #431: Unhealthy Alcohol Use Preventative Care & Scrn: Patient not identified as an unhealthy alcohol user PQRS Narrative:
[2021-08-29 13:19] VITALS: BP 170/81; PULSE 60; RESP 18; TEMP 98.2
== END | disposition home or self-care (01) ==
LOC: PNWHC3 12:21
PROVIDERS: ATTEND Specialist
DX: M47.896 Other spondylosis, lumbar region (principal); M47.892 Other spondylosis, cervical region; M51.36 Other intervertebral disc degeneration, lumbar region; M50.30 Other cervical disc degeneration, unspecified cervical region; M25.512 Pain in left shoulder; M25.511 Pain in right shoulder
CPT/HCPCS: 99211

== ENCOUNTER → 2021-11-23 | Outpatient (CLI) | payer MEDICARE, BC ==
[2021-11-23 08:09] VITALS: BP 142/79; PULSE 79; RESP 18; TEMP 98.6
--- NOTE | 2021-11-23 08:16 | P.PN ---
Subjective Progress Note Date: 11/23/21 Principal diagnosis: A 75 yr old male with a history of severe and chronic bilateral shoulder arthropathy presents today for evaluation of right shoulder and medication refills. Patient states pain level is 7 out of 10 in intensity, sharp, stabbing, shooting with escalation to 9 out of 10 in intensity by evening with activity. Denies radiation of pain. MRI of left shoulder without contrast from 10/31/21 reviewed. A shunt has managed his left shoulder with his PCP whom has made 2 attempts at arthrocentesis, then followed up with Dr. Dominguez, home provided the patient with a left shoulder steroid injection. Pain is alleviated with medications, topical blue, ice, heat, home stretching regimen, massage by his at home, injections which have helped slightly, and rest. Patient is currently on Neurontin Patient denies any side effects of the medication(s), denies excessive drowsiness or sleepiness, denies suicidal ideation and reports that the current pain medication is helping to control the pain and improve activities of daily living. Patient denies any motor or sensory deficits. Patient denies any fever or night sweats, denies any change in the bowel movements or urination. Physical Examination: -Constitutional: Cooperative. Not in acute distress . -HEENT: Neck is supple. No lymphadenopathy. No thyromegaly. Normal thyroid size. Eyes: No ptosis , no icterus, no photophobia. ENT: No auditory deficits. Normal oropharynx. No Thrush. - Respiratory: Chest clear to auscultations bilaterally. No wheezing. No rhonchi. - Cardiovascular: Regular rate and rhythm. S1 / S2 , no S3 , no S4. - Gastrointestinal: Abdomen soft no tenderness. Bowel sounds positive in all four quadrants. No organomegaly. - Genitourinary: Deferred. - Neurologic: Cranial nerve II to XII intact. No focal neurological deficits . - Psychatric: Alert & oriented x 3. Matching mood & appropriate affect. Judgment and insight intact. - Lymphatic: No Lymphadenopathy. - Musculoskeletal: Cervical spine: Muscle bulk/ tone/ strength in the bilateral upper extremities normal. Facet loading test cervical area positive. Lumbar spine: Motor bulk/ tone/ strength lower extremities , thigh and legs : 5/5 Deep tendon reflexes : Normal Knee Jerk. Normal Ankle Jerk . Vertebral body tenderness to palpation over Lumbar Facet Loading Test positive Straight Leg Raise: positive at 30 degrees right side/ left side Gaenslen's Test positive Sacral spine : Severe tenderness over the Sacroiliac joint: right side / left side Range of motion: Flexion of the lumbar spine <60 degrees Range of motion: Extension of the lumbar spine <20 degrees Gaenslen's Test positive Chang test: positive right side / left side Assessment and plan: Chronic low back pain secondary to lumbar degenerative disc disease , lumbar spondylosis with facet arthropathy without myelopathy Recommendation of R shoulder injection. May need a series of 3, within a 6 month period, to obtain optimal pain relief. Denies anticoagulant use or medical history of diabetes mellitus. Risks, benefits of procedure discussed and pt verbalized understanding. MRI without contrast of R shoulder re: pain, OA Chronic and current use of high-risk medication (Opioids). The patient was counseled about risk of opioid use, psychological risk associated with opioids and was orally counseled to not overuse , divert or sell medications. Pt is to store medication in a safe location. The patient is counseled against driving while using narcotic medications and also not to use alcohol or any illicit recreational drugs. Patient verbalized understanding that the lack of compliance will result in failure to renew narcotic prescription(s) as well as possible discharge from the clinic Diagnoses, prognosis and treatment options including but not limited to physical therapy, surgical interventions, interventional therapies and medication management including narcotics and adjuvant medication were discussed. All patient questions answered MAPS reviewed and it was appropriate. Urine collected for UDS Prescription refill for Neurontin #60 with 1 refill I have spent 31 minutes on patient care today. Dr Bailey was available by phone for the evaluation of this patient. The time was used to review the medical records including relevant urine studies and Prescription history (MAPs), review of the available imaging, evaluation and examination of the patient, coordination of care with the medical staff and if applicable referring physicians, as well as creation of the medical record Objective - Vital Signs Vital signs: Vital Signs Temp 98.6 F 11/23/21 07:58 Pulse 79 11/23/21 07:58 Resp 18 11/23/21 07:58 BP 142/79 11/23/21 07:58 Pulse Ox 99 11/23/21 07:58 PQRS Measure Charge Sheet Mode of Arrival: Ambulatory - Pain Location Bilateral Shoulder Non-Pharmacological Interventions: Exercise, Heat, Home Exercise, Ice, Massage, Position/Reposition, Stretching Pharmacological Interventions: Block, Medication, Topical Medication PQRS Narrative: Smoking Status Never smoker Narcotic Agreement Date Signed 08/29/21 Blood Pressure 142/79 Pain Intensity [Bilateral 7 Shoulder] Scale Used Numeric (1 - 10) Hx Alcohol Use (MH) Yes: occ Home Medications: Ambulatory Orders Montelukast [Singulair] 10 mg PO DAILY PRN 10/17/16 Omeprazole 40 mg PO BID 10/17/16 Terazosin [Hytrin] 2 mg PO HS 10/17/16 traMADol HCL [Ultram] 50 mg PO Q6H PRN 10/17/16 Fluticasone Nasal [place] [Flonase Nasal [place]] 2 spr EA NOSTRIL DAILY PRN 10/21/18 Celecoxib [CeleBREX] 200 - 400 tab PO BID 10/22/18 Famotidine [Pepcid] 20 mg PO BID 04/13/21 Melatonin 5 mg PO HS PRN 04/13/21 diphenhydrAMINE [Benadryl] 50 mg PO HS PRN 04/13/21 Multivitamins, Thera [Multivitamin (formulary)] 1 tab PO DAILY 09/21/21 Pregabalin [Lyrica] 50 mg PO BID 30 Days #60 cap 09/26/21
== END | disposition home or self-care (01) ==
LOC: PNWHC3 07:23
PROVIDERS: ATTEND Physician Assistant Medical
DX: M47.896 Other spondylosis, lumbar region (principal); M51.36 Other intervertebral disc degeneration, lumbar region
CPT/HCPCS: 80307; G0482; G0463 ×2; 99211; 99212

== ENCOUNTER → 2021-11-25 | Outpatient (CLI) | payer MEDICARE, BC ==
--- NOTE | 2021-11-25 08:59 | MR ---
EXAMINATION TYPE: MR shoulder RT wo con DATE OF EXAM: 11/25/2021 8:32 AM COMPARISON: NONE HISTORY: Rt shoulder pain TECHNIQUE: Multiplanar multispin echo imaging of the right shoulder was performed. FINDINGS: Rotator cuff : There is no complete or bursal/articular sided partial rotator cuff tear. The subscapu matt constituent of the rotator cuff is intact. Mild thickening and heterogeneity of the supraspinat us tendon compatible chronic tendinopathy. Bursa: No bursal effusion or thickening is seen. Musculature: There is no muscular tear, contusion, or atrophy. Acromioclavicular joint : Subacromial spurring results in impingement. Moderate AC joint arthropathy. Osseous structures : There are no fractures or regions of abnormal bone marrow signal intensity. Long biceps tendon : The biceps tendon is dislocated from the bicipital groove and is located mediall y. There is thickening and heterogeneity increased signal involving the intracapsular portion. There is suspected high-grade partial tear involving the biceps tendon at the glenoid. Glenohumeral Joint fluid : Small joint effusion present. Cartilage and Bone : No focal hyaline cartilage defects are noted. No Hill-Sachs, reverse Hill-Sachs, or bony Bankart lesions are seen. Labrum : Tear anterior superior glenoid labrum. Posterior glenoid labrum intact. OTHER FINDINGS : none IMPRESSION: 1. The biceps tendon is dislocated from the bicipital groove and is located medially. There is thicke demetrice and heterogeneity increased signal involving the intracapsular portion. There is suspected high- grade partial tear involving the biceps tendon at the glenoid. 2. Tear anterior superior glenoid labrum. 3. 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
== END | disposition home or self-care (01) ==
LOC: RADMRIMAIN 07:29
PROVIDERS: ATTEND Specialist
DX: M19.019 Primary osteoarthritis, unspecified shoulder (principal)

== ENCOUNTER → 2022-02-21 | Day surgery (SDC) | payer MEDICARE, BC ==
[2022-02-17 16:40] VITALS: BMI 23.7
[~2022-02-21] MED LIST changes: +LIDOCAINE 1% (10MG/ML) FOR IV START INTRADERMA PRN; +ROPIVACAINE 5MG/ML 20ML VIAL ONE; +methylPREDNISolone ACETATE 40 MG/ML 1 ML VIAL ONE
[2022-02-21 06:47] VITALS: TEMP 98.4
--- NOTE | 2022-02-21 07:17 | P.PCN ---
Date of Procedure: 02/21/22 Procedure(s) Performed: Preoperative diagnosis = Left shoulder arthralgia Postoperative diagnosis = the same as pre-op diagnosis Patient presented with left shoulder pain, MRI was reviewed. Consent was signed in the preoperative area. The patient did not need sedation for this procedure. In the procedure room a timeout was taken. The lumbar area was prepped with chlorhexidine 3. Ultrasound guidance was used to visualize the needle and local anesthetic spread and avoid any neurovascular structures. The 21-gauge needle was guided in plane. After visualization of the needle entering the glenohumeral joint, negative aspiration was confirmed. 10 mL of 0.5% with 40 mg of Depo-Medrol was injected. The site was cleansed and cleaned and a Band-Aid was placed. A picture was saved from the Machine. follup in 3-4 weeks.
[2022-02-21 07:29] VITALS: BP 160/82; PULSE 64; RESP 14
== END ==
LOC: ORPAIN 06:06
PROVIDERS: ATTEND Specialist
DX: M25.512 Pain in left shoulder (principal)
CPT/HCPCS: 20610; J1030

== ENCOUNTER → 2022-03-15 | Outpatient (CLI) | payer MEDICARE, BC ==
[2022-03-15 07:58] VITALS: BP 143/84; PULSE 64; RESP 18
--- NOTE | 2022-03-15 07:59 | P.PAINPG ---
PQRS Measure Charge Sheet Comment: A 76 yr old male with a history of severe and chronic low back pain secondary to lumbar degenerative disc diseases and lumbar spondylosis with facet arthropathy presents today for medication refills, evaluation of left shoulder intra-articular injection and evaluation of LBP. Patient states he experienced 70% pain relief of the left shoulder status post procedure and his pain level is currently 1 out of 10 in intensity, achy, throbbing, intermittent in character which is only provoked with lifting and overhead reaching. Pain level in his lumbar spine is 3 out of 10 in intensity, constant, throbbing in the lower aspects of his lumbar spine with radiation of pain to the hips, left greater than right. Pain escalates as high as 7 out of 10 in intensity when laying supine or being overactive. Pain is alleviated with medications (Lyrica, tramadol), topicals, injections, heat, home exercise regimen, repositioning and rest. Interventional pain procedures completed include L intraarticular injection, BL RFA L3-L5. Patient is currently on Lyrica Patient denies any side effects of the medication(s), denies excessive drowsiness or sleepiness, denies suicidal ideation and reports that the current pain medication is helping to control the pain and improve activities of daily living. Patient denies any motor or sensory deficits. Patient denies any fever or night sweats, denies any change in the bowel movements or urination. Physical Examination: -Constitutional: Cooperative. Not in acute distress . - Neurologic: Cranial nerve II to XII intact. No focal neurological deficits. - Psychatric: Alert & oriented x 3. Matching mood & appropriate affect. Judgment and insight intact. - Musculoskeletal: Cervical spine: Muscle bulk/ tone/ strength in the bilateral upper extremities normal Vertebral body tenderness to palpation over Spurling test positive Distraction test positive Facet loading test positive Thoracic spine Muscle bulk / tone/ strength in the bilateral paraspinal muscles normal Vertebral body tender to palpation over Facet loading test positive Lumbar spine: Motor bulk/ tone/ strength lower extremities , thigh and legs : 5/5 Deep tendon reflexes : Normal Knee Jerk. Normal Ankle Jerk . Vertebral body tenderness to palpation over Lumbar Facet Loading Test positive over BL L4-L5, L5-S1 with overlying paraspinal TTP & jump reflex Straight Leg Raise: positive at 30 degrees right side/ left side Gaenslen's Test positive Sacral spine : Severe tenderness over the Sacroiliac joint: right side / left side Range of motion: Flexion of the lumbar spine <60 degrees Range of motion: Extension of the lumbar spine <20 degrees Gaenslen's Test positive Jagdish's Test positive Chang test: positive right side / left side Thigh Thrust Test Sacral Thrust Test Assessment and plan: Chronic low back pain secondary to lumbar degenerative disc disease , lumbar spondylosis with facet 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 Risks, benefits of procedure discussed and pt verbalized understanding. Denies anticoagulant use or medical history of diabetes. Chronic and current use of high-risk medication (Opioids). The patient was counseled about risk of opioid use, psychological risk associated with opioids and was orally counseled to not overuse , divert or sell medications. Pt is to store medication in a safe location. The patient is counseled against driving while using narcotic medications and also not to use alcohol or any illicit recreational drugs. Patient verbalized understanding that the lack of compliance will result in failure to renew narcotic prescription(s) as well as possible discharge from the clinic Diagnoses, prognosis and treatment options including but not limited to physical therapy, surgical interventions, interventional therapies and medication management including narcotics and adjuvant medication were discussed. All patient questions answered MAPS reviewed and it was appropriate. UDS from 11/23/21 reviewed and consistent Prescription refill for Lyrica 50mg #60 w 1 refill. I have spent less than 30 minutes on patient care today. Dr Bailey was available by phone for the evaluation of this patient. The time was used to rev iew the medical records including relevant urine studies and Prescription history (MAPs), review of the available imaging, evaluation and examination of the patient, coordination of care with the medical staff and if applicable referring physicians, as well as creation of the medical record PQRS Narrative: Smoking Status Never smoker Narcotic Agreement Date Signed 08/29/21 Hx Alcohol Use (MH) Yes: occ Home Medications: Ambulatory Orders Montelukast [Singulair] 10 mg PO DAILY PRN 10/17/16 Omeprazole 40 mg PO BID 10/17/16 Terazosin [Hytrin] 2 mg PO HS 10/17/16 traMADol HCL [Ultram] 50 mg PO TID PRN 10/17/16 Fluticasone Nasal [place] [Flonase Nasal [place]] 2 spr EA NOSTRIL DAILY PRN 10/21/18 Celecoxib [CeleBREX] 200 - 400 tab PO BID 10/22/18 Famotidine [Pepcid] 20 mg PO BID 04/13/21 Melatonin 5 mg PO HS PRN 04/13/21 diphenhydrAMINE [Benadryl] 50 mg PO HS PRN 04/13/21 Multivitamins, Thera [Multivitamin (formulary)] 1 tab PO DAILY 09/21/21 Pregabalin [Lyrica] 50 mg PO BID 30 Days #60 cap 01/18/22 Controlled Substance Measures - Controlled Substance Measures Is patient prescribed a controlled substance at discharge?: Yes When asked, does pt state using other controlled substances?: Yes If prescribed controlled substance>3 days was MAPS reviewed?: Yes If Rx opioid, was Start Talking consent form obtained?: Yes If opioid is for acute pain is fill amount 7 days or less?: Yes Was information provided regarding opioid addiction?: Yes
== END ==
LOC: PNWHC3 07:13
PROVIDERS: ATTEND Specialist
DX: M51.36 Other intervertebral disc degeneration, lumbar region (principal); M47.816 Spondylosis without myelopathy or radiculopathy, lumbar region; G89.29 Other chronic pain; Z79.891 Long term (current) use of opiate analgesic
CPT/HCPCS: 99211

== ENCOUNTER → 2022-04-21 | Day surgery (SDC) | payer MEDICARE, BC ==
[2022-04-19 11:53] VITALS: BMI 23.7
[~2022-04-21] MED LIST changes: +IV FLUID CONTINUATION 400 ML IV ONE; +LACTATED RINGERS 1,000 ML IV ONE; +MIDAZOLAM 2 MG/2 ML VIAL ONE; +fentaNYL (PF) 50 MCG/ML 2 ML AMP ONE
[2022-04-21 07:57] VITALS: TEMP 97.6
--- NOTE | 2022-04-21 09:25 | P.PCN ---
Date of Procedure: 04/21/22 Procedure(s) Performed: PREOPERATIVE DIAGNOSIS: 1-Lumbar Spondylosis with Facet Arthropathy without myelopathy. 2- Lumber degenerative disc disease. POSTOPERATIVE DIAGNOSIS: 1- Lumbar Spondylosis with Facet Arthropathy without myelopathy. 2- Lumber degenerative disc disease. PROCEDURES : Bilateral Radiofrequency thermocoagulation, L3 , L4 , and L5 medial branch, with fluoroscopic guidance (fluoroscopy images available in the radiology department) ( to denervate the facet joint at Bilateral L4-5 ,and L5-S1 levels ). ANESTHESIA: monitered anesthesia care ,as per anesthesia department . EBL: Minimal PROCEDURE INDICATION: The patient with low back pain secondary to lumbar facet arthropathy who had more than 50% relief of her pain with previous diagnostic lumbar medial branch block with bupivacaine. PROCEDURE DESCRIPTION / TECHNIQUE: The patient was seen and identified in the preoperative area. Risks, benefits, complications, including but not limited to risk of infection ,bleeding , allergic reactions to the medications and no complete pain releife , and alternatives were discussed with the patient, the patient agreed to proceed with the procedure and signed the consent. IV was started. Vital signs remained stable throughout the procedure. Patient was taken to the OR and time out was completed. The patient was placed in the prone position on the procedure table. The lumber area was prepped and draped in the usual sterile fashion. . Vital signs were closely monitored during the procedure .IV sedation was used during the procedure to decrease patients anxiety. Using AP and then oblique fluoroscopy, the ``eye of the Edenilson arceo c orresponding to the connection between the superior and transverse articular processes of right L3, L4, and L5 were identified, marked, and localized with 1% lidocaine. Subsequently, a [id number] radiofrequency cannula with a 10- mm active tip was advanced guided by fluoroscopy to each of the``eyes of the Edenilson dog at right L3, L4, and L5. Each site then underwent sensory testing at 50 Hz and 0 to 1 volt and motor testing at 2.5 Hz and 0 to 3 volt with local stimulation, but no radicular symptoms down the legs. Thereafter each sites underwent radiofrequency thermocoagulation at 80 degrees celsius for 90 seconds after injecting 0.5 ml of PF Ropivacaine 1ml, then after the thermocoagulation done , 1 ml of the block solution containing Depo-Medrol 20 mg and 3 ml of Ropivacaine 0.5% was injected at the right L3 , L4 , and L5 , levels after negative aspiration of CSF and blood and with no paresthesias. Cannulas were retracted while injecting lidocaine 1% until the needle is out. The same procedure was repeated at the level of Left L3, L4, and L5 levels. At the end of the procedure, the skin was cleansed and bandages were applied. COMPLICATIONS: No acute complications. DISPOSITION / PLANS: The patient was placed in a supine position and transferred to the recovery area in a stable condition for observation and was discharged from the recovery room after meeting discharge criteria. Home discharge instructions given to the patient by the staff. The patient was reexamined prior to discharge. The patient will schedule a follow up in the clinic in 2-4 weeks.
--- NOTE | 2022-04-21 09:34 | FL ---
EXAMINATION TYPE: FL guided pain mgmt statistic DATE OF EXAM: 04/21/2022 HISTORY: Fluoroscopy time 14 seconds of fluoroscopy provided. IMPRESSION: 1. Fluoroscopy time.
[2022-04-21 10:18] VITALS: BP 136/78; PULSE 62; RESP 16
== END ==
LOC: ORPAIN 07:40
PROVIDERS: ATTEND Specialist
DX: M47.816 Spondylosis without myelopathy or radiculopathy, lumbar region (principal); M51.36 Other intervertebral disc degeneration, lumbar region; I10 Essential (primary) hypertension; K21.9 Gastro-esophageal reflux disease without esophagitis; N40.0 Benign prostatic hyperplasia without lower urinary tract symptoms; M79.7 Fibromyalgia; Z79.51 Long term (current) use of inhaled steroids; Z79.899 Other long term (current) drug therapy; Z80.51 Family history of malignant neoplasm of kidney; Z80.1 Family history of malignant neoplasm of trachea, bronchus and lung
CPT/HCPCS: 64635; 64636 ×2; J2250; J1030; J3010; J2795

== ENCOUNTER → 2022-05-10 | Outpatient (CLI) | payer MEDICARE, BC ==
[2022-05-10 07:56] VITALS: BP 161/89; PULSE 65; RESP 18; TEMP 98.4
--- NOTE | 2022-05-10 15:01 | P.PAINPG ---
PQRS Measure Charge Sheet Comment: A 76 yr old male with a history of severe and chronic low back pain secondary to lumbar degenerative disc diseases and lumbar spondylosis with facet arthropathy without myelopathy and L shoulder DJD presents today for medication refills. Pt states he experienced 90% pain relief s/p procedure. Pain level is currently at 5/10 in intensity, constant, sore/dull in character, localized in the L shoulder joint without shooting pain. Pain is provoked up to 7/10 in intensity w activity. Pain is alleviated with PT in the past, home stretching regimen, medications (Lyrica, Tramadol), repositioning and rest. Interventional pain procedures completed include BL RFA L3-L5, L intraarticular shoulder injection. Patient is currently on Tramadol by PCP, Geni from this clinic Patient denies any side effects of the medication(s), denies excessive drowsiness or sleepiness, denies suicidal ideation and reports that the current pain medication is helping to control the pain and improve activities of daily living. Patient denies any motor or sensory deficits. Patient denies any fever or night sweats, denies any change in the bowel movements or urination. Physical Examination: -Constitutional: Cooperative. Not in acute distress . - Neurologic: Cranial nerve II to XII intact. No focal neurological deficits. - Psychatric: Alert & oriented x 3. Matching mood & appropriate affect. Judgment and insight intact. - Musculoskeletal: +L anterior AC joint line TTP Cervical spine: Muscle bulk/ tone/ strength in the bilateral upper extremities normal Vertebral body tenderness to palpation over Spurling test positive Distraction test positive Facet loading test positive Thoracic spine Muscle bulk / tone/ strength in the bilateral paraspinal muscles normal Vertebral body tender to palpation over Facet loading test positive Lumbar spine: Motor bulk/ tone/ strength lower extremities , thigh and legs : 5/5 Deep tendon reflexes : Normal Knee Jerk. Normal Ankle Jerk . Vertebral body tenderness to palpation over Lumbar Facet Loading Test positive Straight Leg Raise: positive at 30 degrees right side/ left side Gaenslen's Test positive Sacral spine : Severe tenderness over the Sacroiliac joint: right side / left side Range of motion: Flexion of the lumbar spine <60 degrees Range of motion: Extension of the lumbar spine <20 degrees Gaenslen's Test positive Jagdish's Test positive Chang test: positive right side / left side Thigh Thrust Test Sacral Thrust Test Assessment and plan: Chronic low back pain secondary to lumbar degenerative disc disease , lumbar spondylosis with facet arthropathy without myelopathy, L shoulder DJD Recommendation of L shoulder intra articular injection. May need a series, up to 3 within a 6 mo period, for optimal pain relief. Risks, benefits of procedure discussed and pt verbalized understanding. Denies anticoagulant use or medical history of diabetes. Chronic and current use of high-risk medication (Opioids). The patient was counseled about risk of opioid use, psychological risk associated with opioids and was orally counseled to not overuse , divert or sell medications. Pt is to store medication in a safe location. The patient is counseled against driving while using narcotic medications and also not to use alcohol or any illicit recreational drugs. Patient verbalized understanding that the lack of compliance will result in failure to renew narcotic prescription(s) as well as possible discharge from the clinic Diagnoses, prognosis and treatment options including but not limited to physical therapy, surgical interventions, interventional therapies and medication management including narcotics and adjuvant medication were discussed. All patient questions answered MAPS reviewed and it was appropriate. Prescription refill for Lyrica 50mg #60 w 1 RF. I have spent less than 30 minutes on patient care today. Dr Bailey was available by phone for the evaluation of this patient. The time was used to review the medical records including relevant urine studies and Prescription history (MAPs), review of the available imaging, evaluation and examination of the patient, coordination of care with the medical staff and if applicable referring physicians, as well as creation of the medical record PQRS Narrative: Smoking Status Never smoker Narcotic Agreement Date Signed 08/29/21 Hx Alcohol Use (MH) Yes: occ Home Medications: Ambulatory Orders Montelukast [Singulair] 10 mg PO DAILY PRN 10/17/16 Omeprazole 40 mg PO BID 10/17/16 Terazosin [Hytrin] 2 mg PO HS 10/17/16 traMADol HCL [Ultram] 50 mg PO TID PRN 10/17/16 Fluticasone Nasal [place] [Flonase Nasal [place]] 2 spr EA NOSTRIL DAILY PRN 10/21/18 Celecoxib [CeleBREX] 200 - 400 tab PO BID PRN 10/22/18 Famotidine [Pepcid] 20 mg PO BID 04/13/21 Melatonin 5 mg PO HS PRN 04/13/21 diphenhydrAMINE [Benadryl] 50 mg PO HS PRN 04/13/21 Multivitamins, Thera [Multivitamin (formulary)] 1 tab PO DAILY 09/21/21 Pregabalin [Lyrica] 50 mg PO BID 30 Days #60 cap 03/15/22 Controlled Substance Measures - Controlled Substance Measures Is patient prescribed a controlled substance at discharge?: Yes When asked, does pt state using other controlled substances?: Yes If prescribed controlled substance>3 days was MAPS reviewed?: Yes If Rx opioid, was Start Talking consent form obtained?: Yes Was information provided regarding opioid addiction?: Yes
== END ==
LOC: PNWHC3 07:19
PROVIDERS: ATTEND Specialist
DX: M51.36 Other intervertebral disc degeneration, lumbar region (principal); M47.816 Spondylosis without myelopathy or radiculopathy, lumbar region; G89.29 Other chronic pain; M19.012 Primary osteoarthritis, left shoulder; Z79.891 Long term (current) use of opiate analgesic
CPT/HCPCS: 99211

== ENCOUNTER → 2022-07-05 | Outpatient (CLI) | payer MEDICARE, BC ==
[2022-07-05 08:35] VITALS: BP 162/87; PULSE 64; RESP 18; TEMP 98.6
--- NOTE | 2022-07-05 14:24 | P.PAINPG ---
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 Pt states he epxerienced 100% pain relief x 2 wks s/p procedure. Pain level is currently at 2/10 in intensity, constant, localized in the L shoulder, sharp in character w shooting towards the LUE. Pain is provoked as high as 8/10 by lifting, overhead reaching, laying supine for periods of 2 hrs or more. Pain is alleviated with heat, ice, PT in other parts of his body, meds (Lyrica, Celebrex), topicals, use of pillows, repositioning and rest. Interventional pain procedures completed include L Shoulder Bursa injection, LESIs, BL RFA L3-L5 Patient is currently on Lyrica Patient denies any side effects of the medication(s), denies excessive drowsiness or sleepiness, denies suicidal ideation and reports that the current pain medication is helping to control the pain and improve activities of daily living. Patient denies any motor or sensory deficits. Patient denies any fever or night sweats, denies any change in the bowel movements or urination. Physical Examination: -Constitutional: Cooperative. Not in acute distress . - Neurologic: Cranial nerve II to XII intact. No focal neurological deficits. - Psychatric: Alert & oriented x 3. Matching mood & appropriate affect. Judgment and insight intact. - Musculoskeletal: Cervical spine: +L GH Point Tenderness Muscle bulk/ tone/ strength in the bilateral upper extremities normal Vertebral body tenderness to palpation over Spurling test positive Distraction test positive Facet loading test positive Thoracic spine Muscle bulk / tone/ strength in the bilateral paraspinal muscles normal Vertebral body tender to palpation over Facet loading test positive Lumbar spine: Motor bulk/ tone/ strength lower extremities , thigh and legs : 5/5 Deep tendon reflexes : Normal Knee Jerk. Normal Ankle Jerk . Vertebral body tenderness to palpation over Lumbar Facet Loading Test positive Straight Leg Raise: positive at 30 degrees right side/ left side Gaenslen's Test positive Sacral spine : Severe tenderness over the Sacroiliac joint: right side / left side Range of motion: Flexion of the lumbar spine <60 degrees Range of motion: Extension of the lumbar spine <20 degrees Gaenslen's Test positive Jagdish's Test positive Chang test: positive right side / left side Thigh Thrust Test Sacral Thrust Test Assessment and plan: Chronic L Shoulder arthropathy without myelopathy Recommendation of L Shoulder Bursal injection #2. May need a series, up to 4 within a 12 mo period, for optimal pain relief. Risks, benefits of procedure discussed and pt verbalized understanding. Protocol for d iscontinuation/ continuation of medications colin procedure discussed. Chronic and current use of high-risk medication (Opioids). The patient was counseled about risk of opioid use, psychological risk associated with opioids and was orally counseled to not overuse , divert or sell medications. Pt is to store medication in a safe location. The patient is counseled against driving while using narcotic medications and also not to use alcohol or any illicit recreational drugs. Patient verbalized understanding that the lack of compliance will result in failure to renew narcotic prescription(s) as well as possible discharge from the clinic Diagnoses, prognosis and treatment options including but not limited to physical therapy, surgical interventions, interventional therapies and medication management including narcotics and adjuvant medication were discussed. All patient questions answered MAPS reviewed and it was appropriate. UDS collected today 07/05/22 Prescription refill for Lyrica 50mg #60 w 1 RF I have spent less than 30 minutes on patient care today. Dr Bailey was available by phone for the evaluation of this patient. The time was used to review the medical records including relevant urine studies and Prescription history (MAPs), review of the available imaging, evaluation and examination of the patient, coordination of care with the medical staff and if applicable referring physicians, as well as creation of the medical record - Pain Location Left Upper Shoulder Non-Pharmacological Interventions: Heat, Ice, Inactivity, Position/Reposition Pharmacological Interventions: Epidural, PRN Medication, Scheduled Medication, Topical Medication PQRS Narrative: Smoking Status Never smoker Narcotic Agreement Date Signed 08/29/21 Hx Alcohol Use (MH) Yes: occ Home Medications: Ambulatory Orders Montelukast [Singulair] 10 mg PO DAILY PRN 10/17/16 Omeprazole 40 mg PO BID 10/17/16 Terazosin [Hytrin] 2 mg PO HS 10/17/16 traMADol HCL [Ultram] 50 mg PO TID PRN 10/17/16 Fluticasone Nasal [place] [Flonase Nasal [place]] 2 spr EA NOSTRIL DAILY PRN 10/21/18 Celecoxib [CeleBREX] 200 - 400 tab PO BID PRN 10/22/18 Famotidine [Pepcid] 20 mg PO BID 04/13/21 Melatonin 5 mg PO HS PRN 04/13/21 diphenhydrAMINE [Benadryl] 50 mg PO HS PRN 04/13/21 Multivitamins, Thera [Multivitamin (formulary)] 1 tab PO DAILY 09/21/21 Pregabalin [Lyrica] 50 mg PO BID 30 Days #60 cap 07/05/22 Controlled Substance Measures - Controlled Substance Measures Is patient prescribed a controlled substance at discharge?: Yes When asked, does pt state using other controlled substances?: Yes If prescribed controlled substance>3 days was MAPS reviewed?: Yes If Rx opioid, was Start Talking consent form obtained?: Yes Was information provided regarding opioid addiction?: Yes
== END | disposition home or self-care (01) ==
LOC: PNWHC3 07:50
PROVIDERS: ATTEND Specialist
DX: Z51.81 Encounter for therapeutic drug level monitoring (principal); M12.812 Other specific arthropathies, not elsewhere classified, left shoulder
CPT/HCPCS: 80307; G0482; G0463; 99212

== ENCOUNTER 2022-08-01 08:04 | Day surgery (SDC) | payer MEDICARE, BC ==
[2022-08-01 08:25] VITALS: RESP 16; TEMP 97.7
[2022-08-01] MEDS ORDERED: ROPIVACAINE 5 MG/ML 20 ML AMPULE ONE (08:32)
[2022-08-01] MEDS ORDERED: TRIAMCINOLONE ACETONIDE 40 MG/ML 1 ML VIAL ONE (08:32)
[2022-08-01] MEDS ORDERED: LACTATED RINGERS 1,000 ML IV SCH (08:45)
--- NOTE | 2022-08-01 08:48 | P.PCN ---
Date of Procedure: 08/01/22 Description of Procedure: Pre- and Post-operative Diagnosis: Left subacromial bursitis Procedure: Left Subacromial bursa injection under ultrasound guidance Surgeon: Amanda Salomon Anesthesia: Local with 1% Lidocaine Sedation; none. Complications: none. Estimated blood: None Specimens removed: None Ultrasound image : saved to electronic medical records. Indications for Procedure: The patient has been suffering from shoulder pain, difficulty to abduct the shoulder joint beyond 90 and inadequate pain relief after pharmacologic regimen. Came here for subacromial bursa injection. Procedure and Findings: The patient was seen and examined in the holding area. A written informed consent was obtained after explaining the risks, benefits and alternatives of the procedure to the patient. The patient was placed in the sitting position with arm at the side of body with internal rotation of arm across the waist. The skin preparation was done with ChloraPrep solution, and sterile technique was observed throughout the procedure. Using high-frequency lesion ultrasound probe used for the procedure. Under ultrasound guidance landmarks identified for the subacromial bursa . 2 ml of 1% Lidocaine was injected with a 25 gauge needle to achieve adequate local anesthesia of the skin and subcutaneous tissue. A 22 gauge 50 mm PAJUNK needle was introduced through the target point and the needle was directed using in plane technique. A total of 5 ml solution containing Kenalog 40 mg and 4 ml of 0.5%preservative-free ropivacaine was injected slowly. The needle was removed intact, area was cleaned and bandage was applied. Disposition : The patient tolerated the procedure very well. The patient was given detailed discharge instructions for infection, bleeding, and increased pain at the injection site, and was advised to seek immediate medical attention should significant side effects develop. The patient will be scheduled to follow up with the pain clinic in 4 to 8 weeks for follow-up visit.
[2022-08-01 09:00] VITALS: BP 157/73; PULSE 68
== END 2022-08-01 09:12 | disposition home or self-care (01) ==
LOC: ORPAIN 08:04
DX: M75.52 Bursitis of left shoulder (principal); M19.012 Primary osteoarthritis, left shoulder; K21.9 Gastro-esophageal reflux disease without esophagitis; Z98.890 Other specified postprocedural states; Z79.899 Other long term (current) drug therapy
CPT/HCPCS: 20610; 76942; 20611; J3301; J2795

== ENCOUNTER → 2022-08-30 | Outpatient (CLI) | payer MEDICARE, BC ==
[2022-08-30 08:17] VITALS: BP 155/91; PULSE 81; RESP 18
--- NOTE | 2022-08-30 14:19 | P.PAINPG ---
Objective - Vital Signs Vital signs: Vital Signs Temp Pulse 81 08/30/22 08:04 Resp 18 08/30/22 08:04 BP 155/91 08/30/22 08:04 Pulse Ox 97 08/30/22 08:04 FiO2 Intake & Output 08/29/22 08/30/22 08/30/22 18:59 06:59 18:59 Weight 79.379 kg PQRS Measure Charge Sheet Mode of Arrival: Ambulatory Comment: A 76 yr old male with a history of severe and chronic L shoulder pain secondary to DJD presents today for medication refills and L shoulder bursa injection. PT states he experienced 100% pain relief x 4 wks s/p procedure. Pain level is at 2/10 in intensity w provocation, constant, localized in the L shoulder, sore in character without shooting pain. Pain is provoked by standing/ walking for periods of 15 min or more, or laying supine. Pain is alleviated with PT 6 yrs ago, heat, sometimes ice, medications (Lyrica, Tramadol), topicals, sitting and rest. Interventional pain procedures completed include L Shoulder Bursa Injection Patient is currently on Lyrica Tramadol Patient denies any side effects of the medication(s), denies excessive drowsiness or sleepiness, denies suicidal ideation and reports that the current pain medication is helping to control the pain and improve activities of daily living. Patient denies any motor or sensory deficits. Patient denies any fever or night sweats, denies any change in the bowel movements or urination. Physical Examination: -Constitutional: Cooperative. Not in acute distress . - Neurologic: Cranial nerve II to XII intact. No focal neurological deficits. - Psychatric: Alert & oriented x 3. Matching mood & appropriate affect. Judgment and insight intact. - Musculoskeletal: Cervical spine: Muscle bulk/ tone/ strength in the bilateral upper extremities normal Vertebral body tenderness to palpation over Spurling test positive Distraction test positive Facet loading test positive Thoracic spine Muscle bulk / tone/ strength in the bilateral paraspinal muscles normal Vertebral body tender to palpation over Facet loading test positive Lumbar spine: Motor bulk/ tone/ strength lower extremities , thigh and legs : 5/5 Deep tendon reflexes : Normal Knee Jerk. Normal Ankle Jerk . Vertebral body tenderness to palpation over Lumbar Facet Loading Test positive Straight Leg Raise: positive at 30 degrees right side/ left side Gaenslen's Test positive Sacral spine : Severe tenderness over the Sacroiliac joint: right side / left side Range of motion: Flexion of the lumbar spine <60 degrees Range of motion: Extension of the lumbar spine <20 degrees Gaenslen's Test positive Chang test: positive right side / left side Thigh Thrust Test Sacral Thrust Test Assessment and plan: Chronic L Shoulder pain secondary to DJD Chronic and current use of high-risk medication (Opioids). The patient was counseled about risk of opioid use, psychological risk associated with opioids and was orally counseled to not overuse , divert or sell medications. Pt is to store medication in a safe location. The patient is counseled against driving while using narcotic medications and also not to use alcohol or any illicit recreational drugs. Patient verbalized understanding that the lack of compliance will result in failure to renew narcotic prescription(s) as well as possible discharge from the clinic Diagnoses, prognosis and treatment options including but not limited to physical therapy, surgical interventions, interventional therapies and medication management including narcotics and adjuvant medication were discussed. All patient questions answered MAPS reviewed and it was appropriate. UDS from 07/05/22 reviewed and consistent Prescription reduced Lyrica 50mg #30 w 1 RF I have spent less than 30 minutes on patient care today. Dr Bailey was available by phone for the evaluation of this patient. The time was used to review the medical records including relevant urine studies and Prescription history (MAPs), review of the available imaging, evaluation and examination of the patient, coordination of care with the medical staff and if applicable referring physicians, as well as creation of the medical record - Pain Location Left Shoulder Non-Pharmacological Interventions: Heat, Ice, Inactivity, Sitting Pharmacological Interventions: Block, Epidural, PRN Medication, Scheduled Medication, Topical Medication PQRS Narrative: Smoking Status Never smoker Narcotic Agreement Date Signed 08/30/22 Blood Pressure 155/91 Pain Intensity [Left Shoulder] 2 Scale Used Numeric (1 - 10) Hx Alcohol Use (MH) Yes: occ Home Medications: Ambulatory Orders Montelukast [Singulair] 10 mg PO DAILY PRN 10/17/16 Omeprazole 40 mg PO BID 10/17/16 Terazosin [Hytrin] 2 mg PO HS 10/17/16 traMADol HCL [Ultram] 50 mg PO TID PRN 10/17/16 Fluticasone Nasal [place] [Flonase Nasal [place]] 2 spr EA NOSTRIL DAILY PRN 10/21/18 Celecoxib [CeleBREX] 200 - 400 tab PO BID PRN 10/22/18 Famotidine [Pepcid] 20 mg PO BID 04/13/21 Melatonin 5 mg PO HS PRN 04/13/21 diphenhydrAMINE [Benadryl] 50 mg PO HS PRN 04/13/21 Multivitamins, Thera [Multivitamin (formulary)] 1 tab PO DAILY 09/21/21 Pregabalin [Lyrica] 50 mg PO BID 30 Days #60 cap 07/05/22 Controlled Substance Measures - Controlled Substance Measures Is patient prescribed a controlled substance at discharge?: Yes When asked, does pt state using other controlled substances?: Yes If prescribed controlled substance>3 days was MAPS reviewed?: Yes If Rx opioid, was Start Talking consent form obtained?: Yes Was information provided regarding opioid addiction?: Yes
== END ==
LOC: PNWHC3 07:49
PROVIDERS: ATTEND Specialist
DX: M19.212 Secondary osteoarthritis, left shoulder (principal)
CPT/HCPCS: 99211

== ENCOUNTER → 2023-01-02 | Outpatient (CLI) | payer MEDICARE, BC | END | disposition home or self-care (01) | LOC: LABWHC1 11:57 | PROVIDERS: ATTEND Surgery Plastic and Reconstructive Surgery | DX: I10 Essential (primary) hypertension (principal); I44.4 Left anterior fascicular block; R94.31 Abnormal electrocardiogram [ECG] [EKG] | CPT/HCPCS: 36415; 93005 ==

== ENCOUNTER → 2023-01-30 | Outpatient (CLI) | payer MEDICARE, BC ==
[2023-01-30 14:06] LABS: African American GFR (CKD) >90 (>60 ml/min/1.73 sqM); Blood Urea Nitrogen 17 mg/dL (9-20); Non-African American GFR(CKD) 87 (>60 ml/min/1.73 sqM)
--- NOTE | 2023-01-31 09:53 | CT ---
EXAMINATION TYPE: CT abdomen pelvis w con DATE OF EXAM: 01/30/2023 COMPARISON: NONE HISTORY: 77-year-old male K40.90, R10.84, Right inguinal hernia TECHNIQUE: Contiguous axial scanning of the abdomen and pelvis following administration of 100 ml Iso andrea 300 IV contrast. Delayed images through the kidneys and coronal/sagittal reconstructions perform ed. CT DLP: 1095 mGycm Automated exposure control for dose reduction was used. FINDINGS: Heart and bones are normal in size. Lung bases clear without pleural effusion. Numerous small calcified granulomas within the liver. Portal venous system is patent. No biliary duct al dilatation. Gallbladder, adrenal glands, kidneys, and pancreas show no gross abnormality. Calcified granulomas within the spleen. Peripherally calcified cyst measuring 2.3 cm at the upper roni e of the spleen probably a pseudocyst. No dilated small bowel, free fluid, or free air. No mesenteric or retroperitoneal lymphadenopathy. Small 1.8 cm fatty umbilical hernia. There is moderate overall stool burden. Sigmoid diverticulosis. No pericolonic inflammatory change. There is a small to moderate-sized fatty direct right inguinal hernia measuring 3.9 cm long and 2.3 c m wide bulging disc anterior to the superficial inguinal ring. Bladder is distended. Prostate gland measures 4.3 cm wide. Trace left hydrocele is nonspecific. No abnormal fluid collections or pelvis or pelvic lymphadenopath y. Bones: Advanced spondylotic changes throughout the visualized mid and lower lumbar spine. IMPRESSION: 1. SMALL TO MODERATE-SIZED FATTY DIRECT RIGHT INGUINAL HERNIA MEASURING 3.9 CM LONG AND 2.3 CM WIDE. 2. SMALL FATTY UMBILICAL HERNIA. 3. EVIDENCE OF PRIOR GRANULOMATOUS DISEASE. SIGMOID DIVERTICULOSIS AND MILD PROSTATOMEGALY AT 4.3 CM WIDE.
== END | disposition home or self-care (01) ==
LOC: RADCTMAIN 13:28
PROVIDERS: ATTEND Family Medicine
DX: K40.90 Unilateral inguinal hernia, without obstruction or gangrene, not specified as recurrent (principal); K42.9 Umbilical hernia without obstruction or gangrene; K57.30 Diverticulosis of large intestine without perforation or abscess without bleeding; N40.0 Benign prostatic hyperplasia without lower urinary tract symptoms
CPT/HCPCS: 82565; 84520; 74177; 36415; Q9967

== ENCOUNTER 2023-02-15 08:44 | Day surgery (SDC) | payer MEDICARE, BC ==
[2023-02-14 08:27] VITALS: BMI 23.7
[~2023-02-15 08:44] MED LIST changes: -IV FLUID CONTINUATION 400 ML IV ONE; -LACTATED RINGERS 1,000 ML IV ONE; -MIDAZOLAM 2 MG/2 ML VIAL ONE; -ROPIVACAINE 5MG/ML 20ML VIAL ONE; -fentaNYL (PF) 50 MCG/ML 2 ML AMP ONE; -methylPREDNISolone ACETATE 40 MG/ML 1 ML VIAL ONE
[2023-02-15] MEDS ORDERED: LACTATED RINGERS 1,000 ML IV ONE (08:50)
[2023-02-15 09:14] VITALS: TEMP 97.3
[2023-02-15] MEDS ORDERED: PROPOFOL 10 MG/ML 20 ML VIAL IV ONE (09:23)
[2023-02-15] MEDS ORDERED: LIDOCAINE 2% INJ 20 MG/ML (2 ML VIAL) ONE (09:23)
[2023-02-15 09:59] VITALS: BP 136/75; PULSE 69; RESP 16
--- NOTE | 2023-02-15 10:59 | P.GSHP ---
History of Present Illness H&P Date: 02/15/23 CHIEF COMPLAINT: GERD HISTORY OF PRESENT ILLNESS: The patient is a 77-year-old male who presents reports gastroesophageal reflux disease. Upper endoscopy was offered for further evaluation and management. PAST MEDICAL HISTORY: Please see list. PAST SURGICAL HISTORY: Please see list. MEDICATIONS: Please see list. ALLERGIES: Please see list. SOCIAL HISTORY: No illicit drug use FAMILY HISTORY: No reports of Crohn disease or ulcerative colitis. REVIEW OF ORGAN SYSTEMS: CONSTITUTIONAL: No reports of fevers or chills. GI: Denies any blood in stools or constipation. PHYSICAL EXAM: VITAL SIGNS: Stable GENERAL: Well-developed and pleasant in no acute distress. HEENT: No scleral icterus. Extraocular movements grossly intact. Moist buccal mucosa. NECK: Supple without lymphadenopathy. CHEST: Unlabored respirations. Equal bilateral excursions. CARDIOVASCULAR: Regular rate and rhythm. Distal 2+ pulses. ABDOMEN: Soft, nondistended. MUSCULOSKELETAL: No clubbing, cyanosis, or edema. ASSESSMENT: 1. Gastroesophageal reflux disease PLAN: 1. Recommend proceeding with an upper endoscopy Past Medical History Past Medical History: Fibromyalgia, GERD/Reflux, Hypertension, Prostate Disorder Additional Past Medical History / Comment(s): CHRONIC BACK PAIN, Reynolds's Esophagus., Positive home covid test (approx 04/09/22) received Paxlovid - completed 04/17/22., states residual raspy voice. 07/28/22 states no changes to medical history since last pain clinic visit. inguinal hernia, (right) hiatal hernia, umbilical hernia History of Any Multi-Drug Resistant Organisms: None Reported Past Surgical History: Orthopedic Surgery, Tonsillectomy Additional Past Surgical History / Comment(s): BILATERAL CATARACTS, PAIN INJECTIONS FOR BACK, shoulder, hips. LEFT WRIST BONE GRAFT, LEFT WRIST CARPAL TUNNEL, EGD, colonoscopy. Past Anesthesia/Blood Transfusion Reactions: No Reported Reaction Smoking Status: Never smoker - Past Family History Brother(s) Family Medical History: Cancer Additional Family Medical History / Comment(s): KIDNEY CANCER. BYPASS SURGERY. bladder removed cancer Medications and Allergies Home Medications Medication Instructions Recorded Confirmed Type Omeprazole 40 mg PO BID 10/17/16 02/15/23 History Terazosin [Hytrin] 2 mg PO HS 10/17/16 02/15/23 History traMADol HCL [Ultram] 50 mg PO TID PRN 10/17/16 02/15/23 History Fluticasone Nasal [place] [Flonase 2 spr EA NOSTRIL DAILY PRN 10/21/18 02/15/23 History Nasal [place]] Celecoxib [CeleBREX] 200 - 400 tab PO BID PRN 10/22/18 02/15/23 History Famotidine [Pepcid] 20 mg PO BID 04/13/21 02/15/23 History Melatonin 5 mg PO HS PRN 04/13/21 02/15/23 History diphenhydrAMINE [Benadryl] 50 mg PO HS PRN 04/13/21 02/15/23 History Multivitamins, Thera [Multivitamin 1 tab PO DAILY 09/21/21 02/15/23 History (formulary)] Docusate Sodium [Dok] 100 mg PO DAILY 02/14/23 02/15/23 History Allergies Allergy/AdvReac Type Severity Reaction Status Date / Time No Known Allergies Allergy Verified 02/15/23 08:57 Surgical - Exam Vital Signs Temp Pulse Resp BP Pulse Ox 97.3 F L 74 15 136/65 99 02/15/23 09:00 02/15/23 09:00 02/15/23 09:00 02/15/23 09:00 02/15/23 09:00
--- NOTE | 2023-02-15 11:01 | P.PCN ---
Date of Procedure: 02/15/23 Description of Procedure: PREOPERATIVE DIAGNOSIS: Gastroesophageal reflux disease. Reynolds's esophagus POSTOPERATIVE DIAGNOSIS: Gastroesophageal reflux disease. Gastritis. Diaphragmatic hiatal hernia OPERATION: Esophagogastroduodenoscopy with biopsies along antrum and duodenal SURGEON: Elma Pugh MD ANESTHESIA: MAC. INDICATIONS: The patient is a 77-year-old male who presents with reflux disease. Benefits and risks of the procedure were described. Informed consent was obtained. DESCRIPTION: The patient was brought into the endoscopy suite and laid in the left lateral decubitus position. An Olympus gastroscope was passed along the posterior oropharynx down to the distal esophagus where the squamocolumnar junction was encountered at 37 cm from the incisors. The stomach was entered and no bile reflux was found. Additional findings are listed below. Biopsies with cold forceps were obtained of the antrum. The first through third portion of the duodenum was examined. Retroflexion of the scope confirmed Hill grade 4 lower esophageal valve. The squamocolumnar junction demonstrated LA grade B erosive esophagitis. The stomach was desufflated. The patient tolerated the procedure well. FINDINGS: Squamocolumnar junction 37 cm from the incisors. Diaphragmatic hiatus at 41 cm. Hiatal hernia, 4 cm Hill grade 4 lower esophageal valve. LA grade B erosive esophagitis. Biopsies obtained of duodenum Chronic gastritis and biopsies obtained RECOMMENDATIONS: Repeat upper endoscopy one to 3 years due to Reynolds. Continue antacid Recommend repair of hiatal hernia due to symptomatic Reynolds's disease Plan - Discharge Summary Discharge Rx Participant: No New Discharge Prescriptions: Continue Terazosin [Hytrin] 2 mg PO HS traMADol HCL [Ultram] 50 mg PO TID PRN PRN Reason: Pain Omeprazole 40 mg PO BID Fluticasone Nasal [place] [Flonase Nasal [place]] 2 spr EA NOSTRIL DAILY PRN PRN Reason: Seasonal Allergies Celecoxib [CeleBREX] 200 - 400 tab PO BID PRN PRN Reason: Pain Melatonin 5 mg PO HS PRN PRN Reason: Insomnia Docusate Sodium [Dok] 100 mg PO DAILY diphenhydrAMINE [Benadryl] 50 mg PO HS PRN PRN Reason: Insomnia Famotidine [Pepcid] 20 mg PO BID Multivitamins, Thera [Multivitamin (formulary)] 1 tab PO DAILY Discharge Medication List Omeprazole 40 mg PO BID 10/17/16 [History] Terazosin [Hytrin] 2 mg PO HS 10/17/16 [History] traMADol HCL [Ultram] 50 mg PO TID PRN 10/17/16 [History] Fluticasone Nasal [place] [Flonase Nasal [place]] 2 spr EA NOSTRIL DAILY PRN 10/21/18 [History] Celecoxib [CeleBREX] 200 - 400 tab PO BID PRN 10/22/18 [History] Famotidine [Pepcid] 20 mg PO BID 04/13/21 [History] Melatonin 5 mg PO HS PRN 04/13/21 [History] diphenhydrAMINE [Benadryl] 50 mg PO HS PRN 04/13/21 [History] Multivitamins, Thera [Multivitamin (formulary)] 1 tab PO DAILY 09/21/21 [History] Docusate Sodium [Dok] 100 mg PO DAILY 02/14/23 [History] Follow up Appointment(s)/Referral(s): Elma Pugh MD [STAFF PHYSICIAN] - As Needed Patient Instructions/Handouts: *Surgery [facility] - (Anesthesia) Discharge Instructions Outpatient Surgery, Hiatal Hernia (DC), Gastritis (DC), Upper Endoscopy (DC) Discharge Disposition: HOME SELF-CARE
== END 2023-02-15 11:30 | disposition home or self-care (01) ==
LOC: ORWHC2ENDO 08:44
PROVIDERS: ATTEND Surgery Plastic and Reconstructive Surgery
DX: K29.50 Unspecified chronic gastritis without bleeding (principal); K21.00 Gastro-esophageal reflux disease with esophagitis, without bleeding; K44.9 Diaphragmatic hernia without obstruction or gangrene; K22.70 Barrett's esophagus without dysplasia; I10 Essential (primary) hypertension; M79.7 Fibromyalgia; N42.9 Disorder of prostate, unspecified; Z86.16 Personal history of COVID-19; Z98.890 Other specified postprocedural states; Z79.1 Long term (current) use of non-steroidal anti-inflammatories (NSAID); Z79.899 Other long term (current) drug therapy; Z79.891 Long term (current) use of opiate analgesic
CPT/HCPCS: 88305; 43239; J2704; J2001

== ENCOUNTER → 2023-04-11 | Outpatient (CLI) | payer MEDICARE, BC ==
[2023-04-11 08:40] VITALS: BP 158/88; PULSE 66; RESP 15; TEMP 98.2
--- NOTE | 2023-04-11 14:20 | P.PAINPG ---
PQRS Measure Charge Sheet Comment: A 77 yr old male with a history of severe and chronic neck pain secondary to cervical DDD and spondylosis with facet arthropathy without myelopathy presents today for BL shoulder pain. Pain level is provoked at 9 /10 in intensity, constant, localized in the BL shoulders, L> R, sharp in character without sh ooting pain. Pain is provoked by sitting up. Pain is alleviated with PT approx 5 yrs ago, heat, ice, medications (Lyrica), repositioning and rest. Oswestry axial pain score at 22. Interventional pain procedures completed include BL shoulder x2, BL RFA L3-L5 Patient is currently on Patient denies any side effects of the medication(s), denies excessive drowsiness or sleepiness, denies suicidal ideation and reports that the current pain medication is helping to control the pain and improve activities of daily living. Patient denies any motor or sensory deficits. Patient denies any fever or night sweats, denies any change in the bowel movements or urination. Physical Examination: BL AC/ GH joint line TTP -Constitutional: Cooperative. Not in acute distress . - Neurologic: Cranial nerve II to XII intact. No focal neurological deficits. - Psychatric: Alert & oriented x 3. Matching mood & appropriate affect. Judgment and insight intact. - Musculoskeletal: Cervical spine: Muscle bulk/ tone/ strength in the bilateral upper extremities normal Vertebral body tenderness to palpation over Spurling test positive Distraction test positive Facet loading test positive TTP Thoracic spine Muscle bulk / tone/ strength in the bilateral paraspinal muscles normal Vertebral body tender to palpation over Facet loading test positive TTP Lumbar spine: Motor bulk/ tone/ strength lower extremities , thigh and legs : 5/5 Deep tendon reflexes : Normal Knee Jerk. Normal Ankle Jerk . Vertebral body tenderness to palpation over Lumbar Facet Loading Test positive Straight Leg Raise: positive at 30 degrees right side/ left side Gaenslen's Test positive Sacral spine : Severe tenderness over the Sacroiliac joint: right side / left side Range of motion: Flexion of the lumbar spine <60 degrees Range of motion: Extension of the lumbar spine <20 degrees Gaenslen's Test positive R / L Chang test: positive right side / left side Thigh Thrust Test positive R / L Sacral Thrust Test positive R/ L Assessment and plan: Chronic neck pain secondary to cervical DDD, spondylosis with facet arthropathy without myelopathy Recommendation of BL intraarticular shoulder injections. Risks, benefits of procedure discussed and pt verbalized understanding. Admits to anticoagulant use or medical history of diabetes. Protocol for discontinuation/ continuation of medications colin procedure discussed. Minimal anesthesia provided, if clinically indicated, consisting of Versed and Fentanyl. All questions answered. Chronic and current use of high-risk medication (Opioids). The patient was counseled about risk of opioid use, psychological risk associated with opioids and was orally counseled to not overuse , divert or sell medications. Pt is to store medication in a safe location. The patient is counseled against driving while using narcotic medications and also not to use alcohol or any illicit recreational drugs. Patient verbalized understanding that the lack of compliance will result in failure to renew narcotic prescription(s) as well as possible discharge from the clinic Diagnoses, prognosis and treatment options including but not limited to physical therapy, surgical interventions, interventional therapies and medication management including narcotics and adjuvant medication were discussed. All patient questions answered MAPS reviewed and it was appropriate. Prescription refill for Lyrica 50mg #60 w 1 RF. Narcotic/ opiate agreement updated today 04/11/23. I have spent less than 30 minutes on patient care today. Dr Bailey was available by phone for the evaluation of this patient. The time was used to review the medical records including relevant urine studies and Prescription history (MAPs), review of the available imaging, evaluation and examination of the patient, coordination of care with the medical staff and if applicable referring physicians, as well as creation of the medical record PQRS Narrative: Smoking Status Never smoker Narcotic Agreement Date Signed 08/30/22 Hx Alcohol Use (MH) Yes: occ Home Medications: Ambulatory Orders Omeprazole 40 mg PO BID 10/17/16 Terazosin [Hytrin] 2 mg PO HS 10/17/16 traMADol HCL [Ultram] 50 mg PO TID PRN 10/17/16 Fluticasone Nasal [place] [Flonase Nasal [place]] 2 spr EA NOSTRIL DAILY PRN 10/21/18 Celecoxib [CeleBREX] 200 - 400 tab PO BID PRN 10/22/18 Famotidine [Pepcid] 20 mg PO BID 04/13/21 Melatonin 5 mg PO HS PRN 04/13/21 diphenhydrAMINE [Benadryl] 50 mg PO HS PRN 04/13/21 Multivitamins, Thera [Multivitamin (formulary)] 1 tab PO DAILY 09/21/21 Docusate Sodium [Dok] 100 mg PO DAILY 02/14/23 Pregabalin [Lyrica] 50 mg PO BID 30 Days #60 cap 04/11/23 Controlled Substance Measures - Controlled Substance Measures Is patient prescribed a controlled substance at discharge?: Yes When asked, does pt state using other controlled substances?: No If prescribed controlled substance>3 days was MAPS reviewed?: Yes If Rx opioid, was Start Talking consent form obtained?: Yes Was information provided regarding opioid addiction?: Yes
== END ==
LOC: PNWHC3 08:07
PROVIDERS: ATTEND Specialist
DX: M50.30 Other cervical disc degeneration, unspecified cervical region (principal); M47.812 Spondylosis without myelopathy or radiculopathy, cervical region; G89.29 Other chronic pain; Z79.891 Long term (current) use of opiate analgesic
CPT/HCPCS: 99211

== ENCOUNTER → 2023-04-26 | Outpatient (CLI) | payer MEDICARE, BC ==
[2023-04-26 15:41] LABS: HCT 39.5 % (39.6-50.0); MCH 30.7 pg (27.0-32.0); MCHC 32.9 d/dL (32.0-37.0); MCV 93.4 FL (80.0-97.0); Mean Platelet Volume 9.3 FL (9.5-12.2); NRBC Per 100 WBC 0 X 10*3/uL (0.00-0.01); Platelet Count 292 X 10*3/uL (140-440); RBC 4.23 X 10*6/uL (4.40-5.60); RDW 13.2 % (11.5-14.5); WBC 4.39 X 10*3/uL (4.50-10.00)
== END | disposition home or self-care (01) ==
LOC: LABPAT 08:23
PROVIDERS: ATTEND Surgery Plastic and Reconstructive Surgery
DX: Z01.812 Encounter for preprocedural laboratory examination (principal); K46.9 Unspecified abdominal hernia without obstruction or gangrene
CPT/HCPCS: 85027

== ENCOUNTER 2023-05-03 08:53 | Day surgery (SDC) | payer MEDICARE, BC ==
[2023-04-25 10:09] VITALS: BMI 24.0
[~2023-05-03 08:53] MED LIST changes: +ACETAMINOPHEN TAB 500 MG TAB PO PRN; +DEXAMETHASONE SOD PHOSPHATE 4 MG/ML 1 ML VIAL IV ONE; +HEPARIN SODIUM,PORCINE/PF 5,000 UNIT/0.5 ML SYRINGE SQ PRN; +HYDROmorphone 0.5 MG/0.5 ML SYRINGE IVP PRN; +MELOXICAM 7.5 MG TAB PO PRN; +MIDAZOLAM 2 MG/2 ML VIAL IV PRN; +ONDANSETRON 4 MG/2 ML VIAL IVP ONE; +ONDANSETRON 4 MG/2 ML VIAL IVP PRN
[2023-05-03] MEDS ORDERED: TAMSULOSIN 0.4 MG CAP.ER.24H PO STA (09:58)
--- NOTE | 2023-05-03 10:06 | P.GSHP ---
History of Present Illness H&P Date: 05/03/23 CHIEF COMPLAINT: Inguinal hernia, right. HISTORY OF PRESENT ILLNESS: The patient is a 77-year-old male who presents with a history of swelling and pain along the right groin. He has noted increased swelling including pain of the area. Now he presents for repair of his inguinal hernia. PAST MEDICAL HISTORY: Please see list. PAST SURGICAL HISTORY: Please see list. MEDICATIONS: Please see list. ALLERGIES: Please see list. SOCIAL HISTORY: No illicit drug use FAMILY HISTORY: No reports of Crohn disease or ulcerative colitis. REVIEW OF ORGAN SYSTEMS: CONSTITUTIONAL: No reports of fevers or chills. No reports of weight loss despite prior attempts. GI: Denies any blood in stools or constipation. PHYSICAL EXAM: VITAL SIGNS: Stable GENERAL: Well-developed pleasant in no acute distress. HEENT: No scleral icterus. Extraocular movements grossly intact. Moist buccal mucosa. NECK: Supple without lymphadenopathy. CHEST: Unlabored respirations. Equal bilateral excursions. CARDIOVASCULAR: Regular rate and rhythm. Distal 2+ pulses. ABDOMEN: Soft, nondistended. No peritoneal signs. Moderate tenderness right lower quadrant MUSCULOSKELETAL: No clubbing, cyanosis, or edema. ASSESSMENT: 1. Inguinal hernia, right initial and symptomatic. PLAN: 1. Recommend proceeding robotic inguinal repair with mesh with possible bilateral approach. 2. Benefits and risks of surgical intervention was discussed including possibility of open technique. 3. DVT prophylaxis. 4. Antibiotic prophylaxis. 5. Non narcotic pain management including abdominal wall block described 6. Blood sugar glucose described. 7. Weight loss management described. Past Medical History Past Medical History: Fibromyalgia, GERD/Reflux, Hypertension, Prostate Disorder Additional Past Medical History / Comment(s): CHRONIC BACK PAIN, Reynolds's Esophagus., Positive home covid test (approx 04/09/22) received Paxlovid - completed 04/17/22., states residual raspy voice. 07/28/22 states no changes to medical history since last pain clinic visit. inguinal hernia, (right) hiatal hernia, umbilical hernia History of Any Multi-Drug Resistant Organisms: None Reported Past Surgical History: Orthopedic Surgery, Tonsillectomy Additional Past Surgical History / Comment(s): BILATERAL CATARACTS, PAIN INJECTIONS FOR BACK, shoulder, hips. LEFT WRIST BONE GRAFT, LEFT WRIST CARPAL TUNNEL, EGD, colonoscopy. Past Anesthesia/Blood Transfusion Reactions: No Reported Reaction Smoking Status: Never smoker - Past Family History Brother(s) Family Medical History: Cancer, Pulmonary Embolus Additional Family Medical History / Comment(s): KIDNEY CANCER. BYPASS SURGERY. bladder removed cancer, Medications and Allergies Home Medications Medication Instructions Recorded Confirmed Type Omeprazole 40 mg PO BID 10/17/16 04/25/23 History Terazosin [Hytrin] 2 mg PO HS 10/17/16 04/25/23 History traMADol HCL [Ultram] 50 mg PO TID PRN 10/17/16 04/25/23 History Fluticasone Nasal [place] [Flonase 2 spr EA NOSTRIL DAILY PRN 10/21/18 04/25/23 History Nasal [place]] Celecoxib [CeleBREX] 200 - 400 tab PO BID PRN 10/22/18 04/25/23 History Famotidine [Pepcid] 20 mg PO BID 04/13/21 04/25/23 History diphenhydrAMINE [Benadryl] 50 mg PO HS PRN 04/13/21 04/25/23 History Multivitamins, Thera [Multivitamin 1 tab PO DAILY 09/21/21 04/25/23 History (formulary)] Docusate Sodium [Dok] 100 mg PO DAILY 02/14/23 04/25/23 History Pregabalin [Lyrica] 50 mg PO BID 30 Days #60 cap 04/11/23 04/25/23 Rx Losartan [Cozaar] 25 mg PO DAILY 04/25/23 04/25/23 History Allergies Allergy/AdvReac Type Severity Reaction Status Date / Time No Known Allergies Allergy Verified 04/25/23 09:40
[2023-05-03 11:24] LABS: Basophils % (A) 1 %; Eosinophils # (A) 0.1 k/uL (0-0.7); Eosinophils % (A) 1 %; HCT 38.8 % (39.0-53.0); HGB 13.4 gm/dL (13.0-17.5); Lymphocytes # (A) 1.2 k/uL (1.0-4.8); Lymphocytes % (A) 27 %; MCH 31.7 pg (25.0-35.0); MCHC 34.5 g/dL (31.0-37.0); MCV 91.9 fL (80.0-100.0); Mean Platelet Volume 7.1; Monocytes # (A) 0.3 k/uL (0-1.0); Monocytes % (A) 6 %; Neutrophils # (A) 2.7 k/uL (1.3-7.7); Neutrophils % (A) 63 %; Platelet Count 256 k/uL (150-450); RBC 4.22 m/uL (4.30-5.90); RDW 13.2 % (11.5-15.5); WBC 4.3 k/uL (3.8-10.6)
[2023-05-03 11:42] LABS: ALT 17 U/L (4-49); AST 26 U/L (17-59); African American GFR (CKD) >90 (>60 ml/min/1.73 sqM); Albumin 3.9 g/dL (3.5-5.0); Alkaline Phosphatase 71 U/L (38-126); Anion Gap 8 mmol/L; Blood Urea Nitrogen 14 mg/dL (9-20); Calcium 9.2 mg/dL (8.4-10.2); Carbon Dioxide 25 mmol/L (22-30); Chloride 105 mmol/L (98-107); Glucose 91 mg/dL (74-99); Non-African American GFR(CKD) 82 (>60 ml/min/1.73 sqM); Potassium 3.9 mmol/L (3.5-5.1); Sodium 138 mmol/L (137-145); Total Bilirubin 0.6 mg/dL (0.2-1.3); Total Protein 6.9 g/dL (6.3-8.2)
[2023-05-03] MEDS ORDERED: MIDAZOLAM 2 MG/2 ML VIAL IVP ONE (11:48)
[2023-05-03] MEDS ORDERED: ePHEDrine 50 MG/ML 1 ML VIAL ONE (15:48)
[2023-05-03] MEDS ORDERED: LIDOCAINE 2% INJ 20 MG/ML (2 ML VIAL) ONE (15:48)
[2023-05-03] MEDS ORDERED: DEXAMETHASONE SOD PHOSPHATE 4 MG/ML 1 ML VIAL ONE (15:48)
[2023-05-03] MEDS ORDERED: ROCURONIUM 10 MG/ML (5 ML VIAL) IV ONE (15:48)
[2023-05-03] MEDS ORDERED: PROPOFOL 10 MG/ML 20 ML VIAL IV ONE (15:48)
[2023-05-03] MEDS ORDERED: SUCCINYLCHOLINE CHLORIDE 200 MG/10 ML VIAL IV ONE (15:48)
[2023-05-03] MEDS ORDERED: fentaNYL (PF) 50 MCG/ML 2 ML AMP ONE (15:48)
[2023-05-03] MEDS ORDERED: ROPIVACAINE 5 MG/ML 30 ML VIAL ONE (15:48)
[2023-05-03] MEDS ORDERED: HYDROmorphone (PF) 1 MG/ML ONE (15:48)
[2023-05-03] MEDS ORDERED: NEOSTIGMINE 1 MG/ML 10 ML VIAL ONE (15:48)
[2023-05-03] MEDS ORDERED: GLYCOPYRROLATE 0.2 MG/ML 2 ML VIAL ONE (15:48)
[2023-05-03] MEDS ORDERED: SODIUM CHLORIDE 0.9% (PF) 10 ML VIAL ONE (15:48)
[2023-05-03] MEDS ORDERED: BUPIVACAINE (PF) 0.25% 10 ML VIAL SQ ONE ×2 (16:11→16:18)
[2023-05-03 17:25] VITALS: RESP 16; TEMP 97.2
[2023-05-03] MEDS ORDERED: LACTATED RINGERS 1,000 ML IV ONE (18:38)
[2023-05-03 19:01] VITALS: BP 148/70; PULSE 66
--- NOTE | 2023-05-03 19:55 | P.ANPRN ---
Procedure Note - Anesthesia - Nerve Block Performed Bilateral Erector Spinae Single Time Out Performed: Yes Date of Procedure: 05/03/23 Procedure Start Time: 11:46 Procedure Stop Time: 11:52 Location of Patient: PreOp Indication: Acute Post-Operative Pain, Requested by Surgeon Sedation Type: Sedate with meaningful contact maintained Preparation: Sterile Prep Position: Supine Needle Types: Pajunk Needle Gauge: 21 Ultrasound used to visualize needle placement: Yes Ultrasound used to observe medication spread: Yes Blood Aspirated: No Pain Paresthesia on Injection Noted: No Resistance on Injection: Normal Image Stored and Saved: Yes Events: Uneventful and Well Tolerated (Ropivacaine 0.5% 15 mL plus normal saline 10 mL plus dexamethasone 4 mg given bilaterally at L1)
--- NOTE | 2023-05-04 07:10 | P.OP ---
Date of Procedure: 05/03/23 Description of Procedure: SURGEON: ELMA PUGH MD PREOPERATIVE DIAGNOSES: 1. Initial right inguinal hernia. 2. History of abnormal EKG POSTOPERATIVE DIAGNOSES: 1. Initial right inguinal hernia, direct 2. History of abnormal EKG 3. Subfascial right inguinal lipoma, 2 cm OPERATION: 1. Robotic-assisted da Tevin Xi laparoscopic right inguinal hernia repair with mesh, 11.[address] 2. Excision of subfascial right inguinal lipoma, 2 cm ANESTHESIA: General with local anesthetic ESTIMATED BLOOD LOSS: 5 mL. SPECIMENS REMOVED: Right inguinal hernia lipoma COMPLICATIONS: None. FINDINGS: 1. Nyhus type II direct inguinal hernia, reducible, initial, 2 cm 2. Absorbable 2-0 VLOC used 3. Subfascial right inguinal lipoma, 2 cm INDICATIONS: The patient is a 77-year-old gentleman who presents with history of right groin pain. Now presents for definitive surgical intervention. La paroscopic versus open and robotic approaches were discussed. Benefits and risks including bleeding, infection, injury to the vas deferens as well as sterility and chronic groin pain were reviewed. Placement of mesh was also described. Informed consent was obtained. DESCRIPTION: In the preoperative area, the patient was marked with indelible marker along the inguinal hernia. The patient was brought to the operating room and initially laid in supine position. The abdomen had been prepped and draped in standard sterile fashion. Ioban draping was also placed. Prior to incision, a timeout protocol was confirmed with surgical team regarding patient's name including procedures to be performed and location along the right groin. Initial positioning for the robotic assisted ports were selected whereby 20 cm superior to the target anatomy, 0 degree 5 mm laparoscopic trocar entry was performed at the left upper quadrant. The abdomen was insufflated to 15 mmHg which he had tolerated well. Diagnostic laparoscopy demonstrated a indirect inguinal hernia along the right groin. Next, along the epigastrium, 8 mm robot trocar was placed. An 8-mm robotic trocar was placed under direct visualization at the right upper quadrant. An 8 mm port was placed at the left upper quadrant. All trocars were positioned between 8 to 10-cm apart from each other. An accessory trocar was placed on the right lateral abdominal wall 12 mm. The [employer] robot was primed, draped, prepared for docking along the right side of the patient. The patient was placed in Trendelenberg position 21-degrees. I then went to the [employer] console. The miller head assistant wet process was at bedside for exchange of the robot arms and equipment. No hernia was identified along the left groin. The right inguinal hernia sac was evaginated whereby the peritoneum was scored using Endo scissors with cautery. Once completely reduced into the abdominal cavity, the peritoneal sac of the hernia was stripped along an direct inguinal hernia and a subfascial inguinal lipoma, 2-cm and sac was resected and then passed off for further pathological analysis. The size of the hernia defect was 1 cm with intraoperative films obtained. Using a 2-0 VLOC, the peritoneal defect of the right inguinal hernia site was closed using a pursestring suture. The defect was found to be completely closed with complete reduction of the right direct inguinal hernia was confirmed. As an onlay, an 11.[address] mesh by [employer] was initially cut in half and entered into the abdominal cavity via the 8 mm trocar. The mesh was tacked to the pelvis using 2-0 VLOC 9-inch length sutures. The robot was undocked from the patient's bedside. I then rescrubbed into the case. A 12 trocar in the right lateral abdominal wall was oversewn using 0 Vicryl and Tito Gutierrez. Insufflation was released from the abdominal cavity and all instruments were removed from the abdominal cavity. The rest of incisions were reapproximated using 4-0 Monocryl in a running subcuticular fashion. Incisions were cleansed using dilute hydrogen peroxide. Liquid glue was applied to the skin. At the end of the procedure, the needle, sponge and instrument counts had been verified correct by the optics test technician. The patient had tolerated the procedure well and was taken to the postanesthesia care unit in stable condition. Plan - Discharge Summary Discharge Rx Participant: Yes New Discharge Prescriptions: New Cyclobenzaprine [Flexeril] 10 mg PO TID #30 tab Simethicone [Gas-X] 125 mg PO AC-TID PRN #20 capsule PRN Reason: Pain Acetaminophen Tab [Tylenol Tab] 1,000 mg PO Q6HR PRN #30 tablet PRN Reason: Pain Continue Terazosin [Hytrin] 2 mg PO HS traMADol HCL [Ultram] 50 mg PO TID PRN PRN Reason: Pain Omeprazole 40 mg PO BID Fluticasone Nasal [place] [Flonase Nasal [place]] 2 spr EA NOSTRIL DAILY PRN PRN Reason: Seasonal Allergies Celecoxib [CeleBREX] 200 - 400 tab PO BID PRN PRN Reason: Pain Docusate Sodium [Dok] 100 mg PO DAILY diphenhydrAMINE [Benadryl] 50 mg PO HS PRN PRN Reason: Insomnia Famotidine [Pepcid] 20 mg PO BID Multivitamins, Thera [Multivitamin (formulary)] 1 tab PO DAILY Pregabalin [Lyrica] 50 mg PO BID 30 Days #60 cap Losartan [Cozaar] 25 mg PO DAILY Discharge Medication List Omeprazole 40 mg PO BID 10/17/16 [History] Terazosin [Hytrin] 2 mg PO HS 10/17/16 [History] traMADol HCL [Ultram] 50 mg PO TID PRN 10/17/16 [History] Fluticasone Nasal [place] [Flonase Nasal [place]] 2 spr EA NOSTRIL DAILY PRN 10/21/18 [History] Celecoxib [CeleBREX] 200 - 400 tab PO BID PRN 10/22/18 [History] Famotidine [Pepcid] 20 mg PO BID 04/13/21 [History] diphenhydrAMINE [Benadryl] 50 mg PO HS PRN 04/13/21 [History] Multivitamins, Thera [Multivitamin (formulary)] 1 tab PO DAILY 09/21/21 [History] Docusate Sodium [Dok] 100 mg PO DAILY 02/14/23 [History] Pregabalin [Lyrica] 50 mg PO BID 30 Days #60 cap 04/11/23 [Rx] Losartan [Cozaar] 25 mg PO DAILY 04/25/23 [History] Acetaminophen Tab [Tylenol Tab] 1,000 mg PO Q6HR PRN #30 tablet 05/03/23 [Rx] Cyclobenzaprine [Flexeril] 10 mg PO TID #30 tab 05/03/23 [Rx] Simethicone [Gas-X] 125 mg PO AC-TID PRN #20 capsule 05/03/23 [Rx] Follow up Appointment(s)/Referral(s): Elma Pugh MD [STAFF PHYSICIAN] - 05/08/23 ([facility]LE[facility] Dr calls you between 8 am to 8 pm) Patient Instructions/Handouts: *Surgery [facility] - (Anesthesia) Discharge Instructions Outpatient Surgery, Laparoscopic Herniorrhaphy (DC), Inguinal Hernia Repair (GEN) Discharge Disposition: HOME SELF-CARE
== END 2023-05-03 19:36 | disposition home or self-care (01) ==
LOC: OR 08:53
PROVIDERS: ATTEND Surgery Plastic and Reconstructive Surgery
DX: K40.90 Unilateral inguinal hernia, without obstruction or gangrene, not specified as recurrent (principal); G89.18 Other acute postprocedural pain; K21.9 Gastro-esophageal reflux disease without esophagitis; I10 Essential (primary) hypertension; Z86.16 Personal history of COVID-19; Z87.19 Personal history of other diseases of the digestive system; Z79.899 Other long term (current) drug therapy
CPT/HCPCS: 64999; 80053; 85025; 88302; 49650; C1781; J2250; J0330; J1100; J2710; J0690; J2405; J3010; J1170; J2795; J2704; J1644; J2001; J0665

== ENCOUNTER 2023-06-28 08:42 | Day surgery (SDC) | payer MEDICARE, BC ==
[2023-06-25 13:48] VITALS: BMI 23.7
[~2023-06-28 08:42] MED LIST changes: -ACETAMINOPHEN TAB 500 MG TAB PO PRN; -DEXAMETHASONE SOD PHOSPHATE 4 MG/ML 1 ML VIAL IV ONE; -HEPARIN SODIUM,PORCINE/PF 5,000 UNIT/0.5 ML SYRINGE SQ PRN; -HYDROmorphone 0.5 MG/0.5 ML SYRINGE IVP PRN; -LIDOCAINE 1% (10MG/ML) FOR IV START INTRADERMA PRN; -MELOXICAM 7.5 MG TAB PO PRN; -MIDAZOLAM 2 MG/2 ML VIAL IV PRN; -ONDANSETRON 4 MG/2 ML VIAL IVP ONE; -ONDANSETRON 4 MG/2 ML VIAL IVP PRN
[2023-06-28 09:15] VITALS: RESP 16; TEMP 97.8
[2023-06-28] MEDS ORDERED: IOPAMIDOL M200 10 ML VIAL ONE (09:44)
[2023-06-28] MEDS ORDERED: DEXAMETHASONE SOD PHOSPHATE 10 MG/ML 1 ML VIAL ONE (09:44)
--- NOTE | 2023-06-28 09:49 | P.PCN ---
Date of Procedure: 06/28/23 Procedure(s) Performed: . PROCEDURE 1. Cervical epidural steroid injection under fluoroscopic guidance, C6-7 (fluoroscopy images available in the radiology department ) 2. Cervical epidurogram. PREOPERATIVE DIAGNOSIS: 1- Cervical Degenerative Disc Diseases 2-cervical spondylosis with cervical Facet arthropathy without myelopathy.4-cervical spinal stenosis POSTOPERATIVE DIAGNOSIS: : 1- Cervical Degenerative Disc Diseases , 2-cervical spondylosis with cervical Facet arthropathy without myelopathy. 4-cervical spinal stenosis ANESTHESIA: Local anesthesia with lidocaine 1% 3 ml only EBL 0 PROCEDURE INDICATION: The patient with neck pain and radiculitis unresponsive to conservative treatment consents for procedure. PROCEDURE DESCRIPTION / TECHNIQUE: The patient was seen and identified in the preoperative area. Risks, benefits, complications, including but not limited to infections ,bleeding , allergic reactions to the medications ,and not complete pain releife, and alternatives were discussed with the patient, the patient agreed to proceed with the procedure and signed the consent. Patient was taken to the OR and time out was completed. The patient was placed in the prone position on the procedure table. A pillow was placed under the patients chest to increase the cervical interlaminar space. The cervical area was prepped and draped in the usual sterile fashion. Vital signs were closely monitored during the procedure. Using anterior-posterior fluoroscopy, the C6-7 interlaminar space was identified and the skin over this site was marked and then infiltrated with 1% lidocaine subcutaneously. Subsequently, a 20-gauge 3-1/2-inch Tuohy epidural needle was inserted and advanced toward the epidural space by means of the ``hanging-drop technique and guided by AP and lateral fluoroscopy. The correct needle position in the epidural space was verified with the injection of 2 mL of the water soluble contrast dye [id number]-200 and observing an excellent epidurogram with the epidural spread of the dye, after negative aspiration for blood and CSF and in the absence of paresthesias. then, mixture containing 10 mg Dexamethasone and 2 ml of preservative-free normal saline injected and a washout of epidurogram was seen. Needle was withdrawn intact, skin was cleansed, and bandages were applied. Complications= none. Disposition= patient was placed in supine position and transferred to the recovery room area in stable condition and there was no evidence of upper or lower extremity motor or sensory deficit after the procedure patient was discharged from recovery room after discharge criteria met and home discharge instructions was given by the staff and patient will follow with the pain clinic in 2-4 weeks
[2023-06-28 10:14] VITALS: BP 145/76; PULSE 55
--- NOTE | 2023-06-28 10:24 | FL ---
EXAMINATION TYPE: FL guided pain mgmt statistic DATE OF EXAM: 06/28/2023 HISTORY: Fluoroscopy time Total dose area product (DAP) in uGy*m?, mGy*cm? (or similar): 0.52607 IMPRESSION: 1. Fluoroscopy time.
== END 2023-06-28 10:18 | disposition home or self-care (01) ==
LOC: ORPAIN 08:42
PROVIDERS: ATTEND Specialist
DX: M50.123 Cervical disc disorder at C6-C7 level with radiculopathy (principal); M48.02 Spinal stenosis, cervical region; M47.22 Other spondylosis with radiculopathy, cervical region
CPT/HCPCS: 62321; J1100; Q9966

== ENCOUNTER → 2023-08-01 | Outpatient (CLI) | payer MEDICARE, BC ==
[2023-08-01 07:59] VITALS: BP 125/82; PULSE 63; RESP 16; TEMP 97.7
--- NOTE | 2023-08-01 14:44 | P.PAINPG ---
PQRS Measure Charge Sheet Comment: A 77 yr old male with a history of severe and chronic neck pain secondary to DDD and spondylosis with facet arthropathy without myelopathy presents today for evaluation s/p BANG C6-C7 #1. Pt states he experienced 80 % pain relief x 4 wks s/p procedure. Pain level is provoked at 6 /10 in intensity, constant, localized in the lower lumbar spine, predominantly axial, sharp in character w occasional shooting pain to the BLEs. Pain is provoked by laying supine. Pain is alleviated with PT approx 5 yrs ago, heat, ice, medications, repositioning and rest. Cervical disability pain score at 22. Interventional pain procedures completed include BL shoulder x3, BL RFA L3-L5, BANG C6-C7 x1 Patient is currently on Celebrex, Lyrica, Tramadol Patient denies any side effects of the medication(s), denies excessive drowsiness or sleepiness, denies suicidal ideation and reports that the current pain medication is helping to control the pain and improve activities of daily living. Patient denies any motor or sensory deficits. Patient denies any fever or night sweats, denies any change in the bowel movements or urination. Physical Examination: -Constitutional: Cooperative. Not in acute distress . - Neurologic: Cranial nerve II to XII intact. No focal neurological deficits. - Psychatric: Alert & oriented x 3. Matching mood & appropriate affect. Judgment and insight intact. - Musculoskeletal: Cervical spine: Muscle bulk/ tone/ strength in the bilateral upper extremities normal Vertebral body tenderness to palpation Spurling test positive Distraction test positive Facet loading test positive TTP Thoracic spine Muscle bulk / tone/ strength in the bilateral paraspinal muscles normal Vertebral body tender to palpation over Facet loading test positive TTP Lumbar spine: Motor bulk/ tone/ strength lower extremities , thigh and legs : 5/5 Deep tendon reflexes : Normal Knee Jerk. Normal Ankle Jerk . Vertebral body tenderness to palpation over Lumbar Facet Loading Test positive Straight Leg Raise: positive at 30 degrees right side/ left side Gaenslen's Test positive Sacral spine : Severe tenderness over the Sacroiliac joint: right side / left side Range of motion: Flexion of the lumbar spine <60 degrees Range of motion: Extension of the lumbar spine <20 degrees Gaenslen's Test positive R / L Chang test: positive right side / left side Thigh Thrust Test positive R / L Sacral Thrust Test positive R/ L Assessment and plan: Chronic LBP secondary to lumbar DDD, spondylosis with facet arthropathy without myelopathy Chronic and current use of high-risk medication (Opioids). The patient was counseled about risk of opioid use, psychological risk associated with opioids and was orally counseled to not overuse , divert or sell medications. Pt is to store medication in a safe location. The patient is counseled against driving while using narcotic medications and also not to use alcohol or any illicit recreational drugs. Patient verbalized understanding that the lack of compliance will result in failure to renew narcotic prescription(s) as well as possible discharge from the clinic Diagnoses, prognosis and treatment options including but not limited to physical therapy, surgical interventions, interventional therapies and medication management including narcotics and adjuvant medication were discussed. All patient questions answered MAPS reviewed and it was appropriate. UDS collected 08/01/23. Prescription refill for Lyrica 50mg #60 w 1 RF. Narcotic/ opiate agreement updated 08/01/23. I have spent less than 30 minutes on patient care today. Dr Bailey was available by phone for the evaluation of this patient. The time was used to review the medical records including relevant urine studies and Prescription history (MAPs), review of the available imaging, evaluation and examination of the patient, coordination of care with the medical staff and if applicable referring physicians, as well as creation of the medical record PQRS Narrative: Smoking Status Never smoker Narcotic Agreement Date Signed 08/30/22 Hx Alcohol Use (MH) Yes: occ Home Medications: Ambulatory Orders Omeprazole 40 mg PO BID 10/17/16 Terazosin [Hytrin] 2 mg PO HS 10/17/16 traMADol HCL [Ultram] 50 mg PO TID PRN 10/17/16 Famotidine [Pepcid] 20 mg PO BID 04/13/21 diphenhydrAMINE [Benadryl] 50 mg PO HS PRN 04/13/21 Losartan [Cozaar] 25 mg PO DAILY 04/25/23 Melatonin 5 mg PO HS PRN 05/16/23 Celecoxib [CeleBREX] 200 mg PO DAILY PRN 06/25/23 Pregabalin [Lyrica] 50 mg PO BID 30 Days #60 cap 08/01/23 Controlled Substance Measures - Controlled Substance Measures Is patient prescribed a controlled substance at discharge?: Yes When asked, does pt state using other controlled substances?: Yes If prescribed controlled substance>3 days was MAPS reviewed?: Yes If Rx opioid, was Start Talking consent form obtained?: Yes Was information provided regarding opioid addiction?: Yes
== END ==
LOC: PNWHC3 07:22
PROVIDERS: ATTEND Specialist
DX: M47.812 Spondylosis without myelopathy or radiculopathy, cervical region (principal); M51.36 Other intervertebral disc degeneration, lumbar region; M47.816 Spondylosis without myelopathy or radiculopathy, lumbar region; G89.29 Other chronic pain; Z79.891 Long term (current) use of opiate analgesic
CPT/HCPCS: 80307; G0463; 99212

== ENCOUNTER → 2023-10-24 | Outpatient (CLI) | payer MEDICARE, BC ==
[2023-10-24 08:00] VITALS: BP 153/75; PULSE 75; RESP 16
--- NOTE | 2023-10-24 14:26 | P.PAINPG ---
PQRS Measure Charge Sheet Comment: A 77 yr old male with a history of severe and chronic neck pain secondary to DDD and spondylosis with facet arthropathy without myelopathy, BL shoulder DJD presents today for medication refills. Pain level is provoked at 8 /10 in intensity, constant, localized in the BL shoulders, burning in character without shooting pain. Pain is provoked by laying supine. Pain is alleviated with PT approx 5 yrs ago, physician guided exercises 4-5 times weekly since 2019, heat, ice, medications, repositioning and rest. Interventional pain procedures completed include BL shoulder x3, BL RFA L3-L5, BANG C6-C7 x1 Patient is currently on Celebrex, Lyrica, Tramadol Patient denies any side effects of the medication(s), denies excessive drowsiness or sleepiness, denies suicidal ideation and reports that the current pain medication is helping to control the pain and improve activities of daily living. Patient denies any motor or sensory deficits. Patient denies any fever or night sweats, denies any change in the bowel movements or urination. Physical Examination: -Constitutional: Cooperative. Not in acute distress . - Neurologic: Cranial nerve II to XII intact. No focal neurological deficits. - Psychatric: Alert & oriented x 3. Matching mood & appropriate affect. Judgment and insight intact. - Musculoskeletal: Cervical spine: BL AC/ GH joint line TTP Muscle bulk/ tone/ strength in the bilateral upper extremities normal Vertebral body tenderness to palpation Spurling test positive Distraction test positive Facet loading test positive TTP Thoracic spine Muscle bulk / tone/ strength in the bilateral paraspinal muscles normal Vertebral body tender to palpation over Facet loading test positive TTP Lumbar spine: Motor bulk/ tone/ strength lower extremities , thigh and legs : 5/5 Deep tendon reflexes : Normal Knee Jerk. Normal Ankle Jerk . Vertebral body tenderness to palpation over Lumbar Facet Loading Test positive Straight Leg Raise: positive at 30 degrees right side/ left side Gaenslen's Test positive Sacral spine : Severe tenderness over the Sacroiliac joint: right side / left side Range of motion: Flexion of the lumbar spine <60 degrees Range of motion: Extension of the lumbar spine <20 degrees Gaenslen's Test positive R / L Chang test: positive right side / left side Thigh Thrust Test positive R / L Sacral Thrust Test positive R/ L Assessment and plan: Chronic LBP secondary to lumbar DDD, spondylosis with facet arthropathy without myelopathy, BL shoulder DJd Recommendation of BL shoulder intra articular injections #2. May need a series of injections for opitmal pain relief. Risks, benefits of procedure discussed and patient verbalized understanding. Cortical for discontinuation/continuation of medications surrounding procedure discussed. Chronic and current use of high-risk medication (Opioids). The patient was counseled about risk of opioid use, psychological risk associated with opioids and was orally counseled to not overuse , divert or sell medications. Pt is to store medication in a safe location. The patient is counseled against driving while using narcotic medications and also not to use alcohol or any illicit recreational drugs. Patient verbalized understanding that the lack of compliance will result in failure to renew narcotic prescription(s) as well as possible discharge from the clinic Diagnoses, prognosis and treatment options including but not limited to physical therapy, surgical interventions, interventional therapies and medication management including narcotics and adjuvant medication were discussed. All patient questions answered MAPS reviewed and it was appropriate. UDS fr 08/01/23 reviewed and consistent. Prescription refill for Lyrica 50mg #60 w 1 RF. Narcotic/ opiate agreement updated 08/01/23. I have spent less than 30 minutes on patient care today. Dr Bailey was available by phone for the evaluation of this patient. The time was used to review the medical records including relevant urine studies and Prescription hi story (MAPs), review of the available imaging, evaluation and examination of the patient, coordination of care with the medical staff and if applicable referring physicians, as well as creation of the medical record PQRS Narrative: Smoking Status Never smoker Narcotic Agreement Date Signed 08/01/23 Hx Alcohol Use (MH) Yes: occ Home Medications: Ambulatory Orders Omeprazole 40 mg PO BID 10/17/16 Terazosin [Hytrin] 2 mg PO HS 10/17/16 traMADol HCL [Ultram] 50 mg PO TID PRN 10/17/16 Famotidine [Pepcid] 20 mg PO BID 04/13/21 diphenhydrAMINE [Benadryl] 50 mg PO HS PRN 04/13/21 Losartan [Cozaar] 25 mg PO DAILY 04/25/23 Melatonin 5 mg PO HS PRN 05/16/23 Celecoxib [CeleBREX] 200 mg PO DAILY PRN 06/25/23 Pregabalin [Lyrica] 50 mg PO BID 30 Days #60 cap 10/24/23 Controlled Substance Measures - Controlled Substance Measures Is patient prescribed a controlled substance at discharge?: Yes When asked, does pt state using other controlled substances?: No If prescribed controlled substance>3 days was MAPS reviewed?: Yes
== END ==
LOC: PNWHC3 07:26
PROVIDERS: ATTEND Specialist
DX: M19.011 Primary osteoarthritis, right shoulder (principal); M19.012 Primary osteoarthritis, left shoulder; M51.36 Other intervertebral disc degeneration, lumbar region; M47.816 Spondylosis without myelopathy or radiculopathy, lumbar region; G89.29 Other chronic pain; Z79.891 Long term (current) use of opiate analgesic
CPT/HCPCS: 99211

== ENCOUNTER → 2024-01-16 | Outpatient (CLI) | payer MEDICARE, BC ==
--- NOTE | 2024-01-16 08:34 | XR ---
EXAMINATION TYPE: XR shoulder complete BILAT DATE OF EXAM: 01/16/2024 COMPARISON: NONE HISTORY: Pain TECHNIQUE: Three views of each shoulder are submitted. FINDINGS: The osseous structures are intact. There is no acute fracture or dislocation. Generalized deminerali zation. There is moderate right and mild left AC joint arthropathy. Mild glenohumeral joint arthropat hy bilaterally. Vague nodular density left upper lobe. IMPRESSION: 1. Moderate right AC joint arthropathy. 2. Mild AC joint left arthropathy. 3. Mild bilateral glenohumeral joint arthropathy. 4. Vague nodular density left upper lobe possibly related to superimposed structures. Recommend follo w-up chest x-ray.
== END | disposition home or self-care (01) ==
LOC: RADXRMAIN 08:07
PROVIDERS: ATTEND Specialist
DX: M19.011 Primary osteoarthritis, right shoulder (principal); M19.012 Primary osteoarthritis, left shoulder; J98.4 Other disorders of lung

== ENCOUNTER → 2024-01-16 | Outpatient (CLI) | payer MEDICARE, BC ==
[2024-01-16 08:17] VITALS: BP 163/72; PULSE 60; RESP 16
--- NOTE | 2024-01-16 15:46 | P.PAINPG ---
PQRS Measure Charge Sheet Comment: A 78 yr old male with a history of severe and chronic neck pain secondary to DDD and spondylosis with facet arthropathy without myelopathy, BL shoulder DJD presents today for medication refills and evaluation s/p BL shoulder intra articular injection #2. Pt states he experienced 60 % pain relief x 2.5 mo s/p procedure, more so on the L shoulder. Pain level is provoked at 7 /10 in intensity, constant, localized in the BL shoulders, burning in character without shooting pain. Pain is provoked by laying supine. Pain is alleviated with PT approx 5 yrs ago, physician guided exercises 4-5 times weekly since 2019, heat, ice, medications, repositioning and rest. Interventional pain procedures completed include BL shoulder x3, BL RFA L3-L5, BANG C6-C7 x1 Patient is currently on Celebrex, Lyrica, Tramadol Patient denies any side effects of the medication(s), denies excessive drowsiness or sleepiness, denies suicidal ideation and reports that the current pain medication is helping to control the pain and improve activities of daily living. Patient denies any motor or sensory deficits. Patient denies any fever or night sweats, denies any change in the bowel movements or urination. Physical Examination: -Constitutional: Cooperative. Not in acute distress . - Neurologic: Cranial nerve II to XII intact. No focal neurological deficits. - Psychatric: Alert & oriented x 3. Matching mood & appropriate affect. Judgment and insight intact. - Musculoskeletal: Cervical spine: BL AC/ GH joint line TTP Muscle bulk/ tone/ strength in the bilateral upper extremities normal Vertebral body tenderness to palpation Spurling test positive Distraction test positive Facet loading test positive TTP Thoracic spine Muscle bulk / tone/ strength in the bilateral paraspinal muscles normal Vertebral body tender to palpation over Facet loading test positive TTP Lumbar spine: Motor bulk/ tone/ strength lower extremities , thigh and legs : 5/5 Deep tendon reflexes : Normal Knee Jerk. Normal Ankle Jerk . Vertebral body tenderness to palpation over Lumbar Facet Loading Test positive Straight Leg Raise: positive at 30 degrees right side/ left side Gaenslen's Test positive Sacral spine : Severe tenderness over the Sacroiliac joint: right side / left side Range of motion: Flexion of the lumbar spine <60 degrees Range of motion: Extension of the lumbar spine <20 degrees Gaenslen's Test positive R / L Chang test: positive right side / left side Thigh Thrust Test positive R / L Sacral Thrust Test positive R/ L Assessment and plan: Chronic LBP secondary to lumbar DDD, spondylosis with facet arthropathy without myelopathy, BL shoulder DJd Recommendation of PT x 6 wks M19.019. Chronic and current use of high-risk medication (Opioids). The patient was counseled about risk of opioid use, psychological risk associated with opioids and was orally counseled to not overuse , divert or sell medications. Pt is to store medication in a safe location. The patient is counseled against driving while using narcotic medications and also not to use alcohol or any illicit recreational drugs. Patient verbalized understanding that the lack of compliance will result in failure to renew narcotic prescription(s) as well as possible discharge from the clinic Diagnoses, prognosis and treatment options including but not limited to physical therapy, surgical interventions, interventional therapies and medication management including narcotics and adjuvant medication were discussed. All patient questions answered MAPS reviewed and it was appropriate. UDS fr 08/01/23 reviewed and consistent. Prescription refill for Lyrica 50mg #60 w 2 RF. Narcotic/ opiate agreement updated 08/01/23. I have spent less than 30 minutes on patient care today. Dr Bailey was available by phone for the evaluation of this patient. The time was used to review the medical records including relevant urine studies and Prescription history (MAPs), review of the available imaging, evaluation and examination of the patient, coordination of care with the medical staff and if applicable referring physicians, as well as creation of the medical record PQRS Narrative: Smoking Status Never smoker Narcotic Agreement Date Signed 08/01/23 Hx Alcohol Use (MH) Yes: occ Home Medications: Ambulatory Orders Omeprazole 40 mg PO BID 10/17/16 traMADol HCL [Ultram] 50 mg PO HS PRN 10/17/16 Famotidine [Pepcid] 20 mg PO BID 04/13/21 Losartan [Cozaar] 25 mg PO DAILY 04/25/23 Celecoxib [CeleBREX] 200 mg PO DAILY PRN 06/25/23 Pregabalin [Lyrica] 50 mg PO BID 30 Days #60 cap 01/16/24 Controlled Substance Measures - Controlled Substance Measures Is patient prescribed a controlled substance at discharge?: Yes When asked, does pt state using other controlled substances?: Yes If prescribed controlled substance>3 days was MAPS reviewed?: Yes
== END ==
LOC: PNWHC3 07:24
PROVIDERS: ATTEND Specialist
DX: G89.29 Other chronic pain (principal); M19.012 Primary osteoarthritis, left shoulder; M19.011 Primary osteoarthritis, right shoulder; M51.36 Other intervertebral disc degeneration, lumbar region; M47.816 Spondylosis without myelopathy or radiculopathy, lumbar region; Z79.891 Long term (current) use of opiate analgesic
CPT/HCPCS: 80307; G0463; 99212

== ENCOUNTER → 2024-02-06 | Outpatient (CLI) | payer MEDICARE, BC ==
--- NOTE | 2024-02-06 09:57 | XR ---
EXAMINATION TYPE: XR chest 2V DATE OF EXAM: 02/06/2024 COMPARISON: None TECHNIQUE: PA and lateral views submitted. HISTORY: Lung nodule FINDINGS: The lungs are clear and there is no pneumothorax, pleural effusion, or focal pneumonia. Heart size normal and no overt failure. Osseous structures demonstrate hypertrophic and degenerative changes of the spine. There is a nodule just inferior to the left anterior margin of the rib. Measures 7 mm. Sli ght elevation left hemidiaphragm with changes of COPD. Basilar scarring or atelectasis on the right. IMPRESSION: 1. No acute process. Findings suggest a left upper lobe 7 mm nodule consider follow-up CT scan chest.
== END | disposition home or self-care (01) ==
LOC: LABWHC1 09:23
PROVIDERS: ATTEND Family Medicine
DX: R91.1 Solitary pulmonary nodule (principal); R91.8 Other nonspecific abnormal finding of lung field
CPT/HCPCS: 71046

== ENCOUNTER → 2024-02-13 | Outpatient (CLI) | payer MEDICARE, BC ==
[2024-02-13 08:55] LABS: African American GFR (CKD) >90 (>60 ml/min/1.73 sqM); Blood Urea Nitrogen 14 mg/dL (9-20); Non-African American GFR(CKD) 83 (>60 ml/min/1.73 sqM)
--- NOTE | 2024-02-13 13:26 | CT ---
EXAMINATION TYPE: CT chest w con CT DLP: 294.20 mGycm, Automated exposure control for dose reduction was used. DATE OF EXAM: 02/13/2024 9:23 AM COMPARISON: None CLINICAL INDICATION:Male, 78 years old with history of R91.1 SOLITARY PULMONARY NODULE, Solitary pulm onary nodule TECHNIQUE: Multiple axial images were obtained through the chest. Sagittal and coronal reformats were created for review. Contrast used:100 mL of Isovue 300 with IV Contrast (None if empty) Oral contrast used: (None if empty) FINDINGS: LUNGS/ PLEURA: Ossified granulomas scattered throughout the lungs no suspicious solid lesions. Mild c entrilobular emphysema changes. No evidence for focal consolidation, pneumothorax or pleural effusion . AIRWAY: Patent and unremarkable. HEART: Size within normal limits. MEDIASTINUM: No gross evidence of adenopathy. Partially calcified lymph nodes are seen throughout the mediastinum. VASCULATURE: No aortic aneurysm. MUSCULOSKELETAL: No acute osseous abnormalities SOFT TISSUES/LYMPH NODES: Unremarkable. LOWER NECK: No significant findings. UPPER ABDOMEN: Calcification is in the spleen with suspected peripherally calcified pseudocyst. Scatt ered calcifications within the liver. Small hiatal hernia. IMPRESSION: 1. Sequela of chronic granulomatous disease involving the lungs, mediastinal lymph nodes spleen and liver with scattered calcifications. No suspicious enlarging lymph nodes. 2. Mild emphysema.
== END | disposition home or self-care (01) ==
LOC: RADCTMAIN 08:10
PROVIDERS: ATTEND Family Medicine
DX: R91.1 Solitary pulmonary nodule (principal); J43.2 Centrilobular emphysema; J84.10 Pulmonary fibrosis, unspecified; I89.8 Other specified noninfective disorders of lymphatic vessels and lymph nodes
CPT/HCPCS: 82565; 84520; 71260; 36415; Q9967

== ENCOUNTER → 2024-04-09 | Outpatient (CLI) | payer MEDICARE, BC ==
[2024-04-09 08:02] VITALS: BP 164/93; PULSE 57; RESP 16; TEMP 97.1
--- NOTE | 2024-04-09 14:46 | P.PAINPG ---
PQRS Measure Charge Sheet Comment: A 78 yr old male with a history of severe and chronic neck pain secondary to DDD and spondylosis with facet arthropathy without myelopathy, BL shoulder DJD presents today for medication refills. Pain level is provoked at 7 /10 in intensity, constant, localized in the BL shoulders, achy in character without sh ooting pain. Pain is provoked by laying supine. Pain is alleviated with PT x 5 wks which ended in Feb 2024 (cervical, BL shoulder), physician guided stretches daily since Feb 2024 (cervical, BL shoulder), heat, ice, medications, repositioning and rest. Interventional pain procedures completed include BL shoulder x3, BL RFA L3-L5, BANG C6-C7 x1 Patient is currently on Celebrex, Lyrica, Tramadol Patient denies any side effects of the medication(s), denies excessive drowsiness or sleepiness, denies suicidal ideation and reports that the current pain medication is helping to control the pain and improve activities of daily living. Patient denies any motor or sensory deficits. Patient denies any fever or night sweats, denies any change in the bowel movements or urination. Physical Examination: -Constitutional: Cooperative. Not in acute distress . - Neurologic: Cranial nerve II to XII intact. No focal neurological deficits. - Psychatric: Alert & oriented x 3. Matching mood & appropriate affect. Judgment and insight intact. - Musculoskeletal: Cervical spine: BL AC/ GH joint line TTP Muscle bulk/ tone/ strength in the bilateral upper extremities normal Vertebral body tenderness to palpation Spurling test positive Distraction test positive C6-C7 Facet loading test positive TTP Thoracic spine Muscle bulk / tone/ strength in the bilateral paraspinal muscles normal Vertebral body tender to palpation over Facet loading test positive TTP Lumbar spine: Motor bulk/ tone/ strength lower extremities , thigh and legs : 5/5 Deep tendon reflexes : Normal Knee Jerk. Normal Ankle Jerk . Vertebral body tenderness to palpation over Lumbar Facet Loading Test positive Straight Leg Raise: positive at 30 degrees right side/ left side Gaenslen's Test positive Sacral spine : Severe tenderness over the Sacroiliac joint: right side / left side Range of motion: Flexion of the lumbar spine <60 degrees Range of motion: Extension of the lumbar spine <20 degrees Gaenslen's Test positive R / L Chang test: positive right side / left side Thigh Thrust Test positive R / L Sacral Thrust Test positive R/ L Assessment and plan: Chronic LBP secondary to lumbar DDD, spondylosis with facet arthropathy without myelopathy, BL shoulder DJD Recommendation of BL shoulder MRI N19.019. Chronic and current use of high-risk medication (Opioids). The patient was counseled about risk of opioid use, psychological risk associated with opioids and was orally counseled to not overuse , divert or sell medications. Pt is to store medication in a safe location. The patient is counseled against driving while using narcotic medications and also not to use alcohol or any illicit recreational drugs. Patient verbalized understanding that the lack of compliance will result in failure to renew narcotic prescription(s) as well as possible discharge from the clinic Diagnoses, prognosis and treatment options including but not limited to physical therapy, surgical interventions, interventional therapies and medication management including narcotics and adjuvant medication were discussed. All patient questions answered MAPS reviewed and it was appropriate. UDS fr 08/01/23 reviewed and consistent. Prescription refill for Lyrica 50mg #60 w 2 RF. Narcotic/ opiate agreement updated 08/01/23. I have spent less than 30 minutes on patient care today. Dr Bailey was available by phone for the evaluation of this patient. The time was used to review the medical records including relevant urine studies and Prescription history (MAPs), review of the available imaging, evaluation and examination of the patient, coordination of care with the medical staff and if applicable referring physicians, as well as creation of the medical record PQRS Narrative: Smoking Status Never smoker Narcotic Agreement Date Signed 08/01/23 Hx Alcohol Use (MH) Yes: occ Home Medications: Ambulatory Orders Omeprazole 40 mg PO BID 10/17/16 traMADol HCL [Ultram] 50 mg PO HS PRN 10/17/16 Famotidine [Pepcid] 20 mg PO BID 04/13/21 Losartan [Cozaar] 25 mg PO DAILY 04/25/23 Celecoxib [CeleBREX] 200 mg PO DAILY PRN 06/25/23 Pregabalin [Lyrica] 50 mg PO BID 30 Days #60 cap 04/09/24 Controlled Substance Measures - Controlled Substance Measures Is patient prescribed a controlled substance at discharge?: Yes When asked, does pt state using other controlled substances?: Yes If prescribed controlled substance>3 days was MAPS reviewed?: Yes
== END ==
LOC: PNWHC3 07:20
PROVIDERS: ATTEND Specialist
DX: M19.012 Primary osteoarthritis, left shoulder (principal); M19.011 Primary osteoarthritis, right shoulder; M51.36 Other intervertebral disc degeneration, lumbar region; M47.816 Spondylosis without myelopathy or radiculopathy, lumbar region; Z79.891 Long term (current) use of opiate analgesic
CPT/HCPCS: 99211

== ENCOUNTER → 2024-04-14 | Outpatient (CLI) | payer MEDICARE, BC ==
--- NOTE | 2024-05-08 10:56 | MR ---
Patient: Laci Dobbs M Ordering Physician: Unknown, Unknown ID: [id number] Phone, Pager: Phone : N/A Pager: N/A : 1945 Age/Gender: 78Y, M Primary Location: N/A Procedure: MR shoulder LT wo con Study Date: 04/14/2024 4:08:08 PM Order #: N/A EXAMINATION TYPE: MR shoulder LT wo con DATE OF EXAM: 05/05/2024 COMPARISON: NONE HISTORY: Bilateral shoulder pain TECHNIQUE: Multiplanar, multisequence imaging of the left shoulder is performed without contrast. FINDINGS: Rotator Cuff: Mild increased signal in the infraspinatus tendon. More prominent increased signal in t he distal supraspinatus tendon . Heterogeneous but intact subscapularis tendon. Rotator cuff muscle b ulk preserved. Acromioclavicular Joint: Moderate narrowing and capsular hypertrophy with subchondral cystic change a nd moderate spurring. Glenohumeral Joint: Narrowing is present. No significant spurring. Labrum: The labrum appears grossly intact given limitation of non-arthrogram study. Biceps Tendon: The long head of biceps is deviated anteriorly from normal location within bicipital g roove. Intracapsular portion not as well seen. Bone marrow signal: Heterogeneous increased T2 signal involving greater tuberosity. Other: No additional significant abnormality is appreciated. IMPRESSION: 1. At least subluxation of the long head of biceps tendon. Finding more prominent versus the opposite right shoulder. 2. Mild tendinosis of infraspinatus tendon. More prominent tendinosis/partial tearing of the supraspi natus tendon similar to the opposite right shoulder. 3. Moderate to borderline severe AC joint arthropathy is more prominent versus right shoulder.
--- NOTE | 2024-05-08 10:57 | MR ---
Patient: Laci Dobbs M Ordering Physician: Unknown, Unknown ID: [id number] Phone, Pager: Phone : N/A Pager: N/A : 1945 Age/Gender: 78Y, M Primary Location: N/A Procedure: MR shoulder RT wo con Study Date: 04/14/2024 3:45:28 PM Order #: N/A EXAMINATION TYPE: MR shoulder RT wo con DATE OF EXAM: 05/05/2024 COMPARISON: NONE HISTORY: Bilateral shoulder pain TECHNIQUE: Multiplanar, multisequence imaging of the right shoulder is performed without contrast. FINDINGS: Rotator Cuff: Some increased signal in the infraspinatus tendon . More prominent increased signal in the distal supraspinatus tendon. Subscapularis tendon intact. Rotator cuff muscle bulk preserved. Acromioclavicular Joint: [id number] narrowing and mild spurring. Glenohumeral Joint: Some narrowing is seen. No significant spurring. Subchondral cystic change involv ing the superior aspect of the osseous glenoid. Labrum: Increased signal superior labrum consistent with degenerative tear. Biceps Tendon: The long head of biceps is slightly parched from normal location within bicipital groo ve. There is increased signal in the intracapsular portion of the reference image 11. Bone marrow signal: No focal abnormal marrow signal is appreciated. Other: No additional significant abnormality is appreciated. IMPRESSION: 1. Tendinosis/partial tearing of the long head of biceps tendon with tenosynovitis. 2. Mild tendinosis of the infraspinatus tendon. More prominent tendinosis of the supraspinatus tendon . 3. Acromioclavicular and glenohumeral joint arthropathy as detailed above.
== END | disposition home or self-care (01) ==
LOC: RADMRIMAIN 16:23
PROVIDERS: ATTEND Specialist
DX: M67.814 Other specified disorders of tendon, left shoulder (principal); M75.112 Incomplete rotator cuff tear or rupture of left shoulder, not specified as traumatic; M65.9 Synovitis and tenosynovitis, unspecified; M67.813 Other specified disorders of tendon, right shoulder; M19.011 Primary osteoarthritis, right shoulder

== ENCOUNTER 2024-04-30 08:01 | Day surgery (SDC) | payer MEDICARE, BC ==
[2024-04-30] MEDS ORDERED: PROPOFOL 10 MG/ML 20 ML VIAL IV ONE (09:30)
[2024-04-30] MEDS ORDERED: LACTATED RINGERS 1,000 ML BAG ONE (09:30)
--- NOTE | 2024-05-02 15:57 | PCN ---
PROCEDURE NOTE REQUESTING PHYSICIAN: Dr. Neha Prabhakar. BRIEF HISTORY: The patient is a 78-year-old pleasant white male scheduled for an upper endoscopy as well as colonoscopy as a part of evaluation of GERD/Reynolds's esophagus and prior history of colon polyps. PROCEDURES PERFORMED: 1. EGD with biopsy. 2. Colonoscopy. PREOPERATIVE DIAGNOSES: GERD/Reynolds's esophagus and history of colon polyps. ANESTHESIA: IV sedation per Anesthesia. DESCRIPTION OF PROCEDURE: After informed consent was obtained from the patient, he was brought in to the endoscopy unit. IV conscious sedation was administered by Anesthesia under continuous monitoring initially. Upper endoscopy was done. The Olympus CF-180 video endoscope was inserted into the mouth and esophagus intubated without any difficulty and was gradually advanced to the stomach and duodenum and carefully examined. Bulb and the second part of the duodenum appeared normal. The scope at this time was withdrawn to the stomach, adequately insufflated with air and upon careful examination of mucosa of antrum, body, cardia, and fundus appeared normal. Scope was then withdrawn through the esophagus. The GE junction was located at 42 cm from the incisors. There was a 3 mm tongue of Reynolds's appearing mucosa just proximal to the GE junction that was biopsied. The rest of the esophagus appeared normal. Small hiatal hernia noted and the patient tolerated the procedure well. He continues to remain sedated. At this time, a colonoscopy was done. Digital rectal examination was normal. The Olympus CF-190 video colonoscope was then inserted in the rectum, gradually advanced into the cecum. Careful examination was performed. The scope was gradually being withdrawn. The ileocecal valve and appendiceal orifice were visualized and appeared normal. The prep was fair. Thorough irrigation was performed. Mucosa of the cecum, ascending colon, transverse colon, descending colon, sigmoid colon and rectum appeared normal. Scattered sigmoid diverticulosis seen. In the rectum, there were grade 2 internal hemorrhoids noted. The patient tolerated the procedure well. IMPRESSION: 1. Upper endoscopy revealed. a. Small hiatal hernia. b. Short-segment Reynolds's esophagus status post biopsy. 2. Colonoscopy revealed scattered sigmoid diverticulosis, but no evidence of colorectal neoplasia. RECOMMENDATIONS: Findings of this examination were discussed with the patient as well as his family was advised to follow up with the biopsy results. If the biopsy confirms the presence of Reynolds's esophagus, he can have a repeat upper endoscopy in 3 years. MMODL / IJN: [id number] /
== END 2024-04-30 10:45 ==
LOC: ORWHC2ENDO 08:01
PROVIDERS: ATTEND Internal Medicine Gastroenterology
DX: K21.00 Gastro-esophageal reflux disease with esophagitis, without bleeding (principal); K22.70 Barrett's esophagus without dysplasia; K44.9 Diaphragmatic hernia without obstruction or gangrene; K57.30 Diverticulosis of large intestine without perforation or abscess without bleeding; I10 Essential (primary) hypertension; N40.0 Benign prostatic hyperplasia without lower urinary tract symptoms; Z79.899 Other long term (current) drug therapy
CPT/HCPCS: 43239; G0121; 45378; 88305

== ENCOUNTER → 2024-05-19 | Outpatient (CLI) | payer MEDICARE, BC ==
[2024-05-19 09:03] VITALS: BP 146/74; PULSE 98; RESP 16; TEMP 96.9
--- NOTE | 2024-05-19 13:32 | P.PAINPG ---
PQRS Measure Charge Sheet Comment: A 78 yr old male with a history of severe and chronic neck pain secondary to DDD and spondylosis with facet arthropathy without myelopathy, BL shoulder DJD presents today for medication refills. Pain level is provoked at 7 /10 in intensity, constant, localized in the BL shoulders, achy in character without sh ooting pain. Pain is provoked by laying supine. Pain is alleviated with PT integrated w massage x 5 wks which ended in Feb 2024 (cervical, BL shoulder), physician guided stretches daily since Feb 2024 (cervical, BL shoulder), heat, ice, medications, repositioning and rest. Interventional pain procedures completed include BL shoulder x3, BL RFA L3-L5, BANG C6-C7 x1 Patient is currently on Celebrex, Lyrica, Tramadol Patient denies any side effects of the medication(s), denies excessive drowsiness or sleepiness, denies suicidal ideation and reports that the current pain medication is helping to control the pain and improve activities of daily living. Patient denies any motor or sensory deficits. Patient denies any fever or night sweats, denies any change in the bowel movements or urination. Physical Examination: -Constitutional: Cooperative. Not in acute distress . - Neurologic: Cranial nerve II to XII intact. No focal neurological deficits. - Psychatric: Alert & oriented x 3. Matching mood & appropriate affect. Judgment and insight intact. - Musculoskeletal: Cervical spine: BL AC/ GH joint line TTP Muscle bulk/ tone/ strength in the bilateral upper extremities normal Vertebral body tenderness to palpation Spurling test positive Distraction test positive C6-C7 Facet loading test positive TTP Thoracic spine Muscle bulk / tone/ strength in the bilateral paraspinal muscles normal Vertebral body tender to palpation over Facet loading test positive TTP Lumbar spine: Motor bulk/ tone/ strength lower extremities , thigh and legs : 5/5 Deep tendon reflexes : Normal Knee Jerk. Normal Ankle Jerk . Vertebral body tenderness to palpation over Lumbar Facet Loading Test positive Straight Leg Raise: positive at 30 degrees right side/ left side Gaenslen's Test positive Sacral spine : Severe tenderness over the Sacroiliac joint: right side / left side Range of motion: Flexion of the lumbar spine <60 degrees Range of motion: Extension of the lumbar spine <20 degrees Gaenslen's Test positive R / L Chang test: positive right side / left side Thigh Thrust Test positive R / L Sacral Thrust Test positive R/ L Imaging: MRI non contrast BL Shoulder from 05/06/24 L > R severe AC arthropathy & infraspinatus tendinosus Assessment and plan: Chronic BL shoulder, LBP secondary to lumbar DDD, spondylosis with facet arthropathy without myelopathy, BL shoulder DJD Recommendation of BL intra articular injection #1. Risks, benefits of procedure discussed and pt verbalized understanding. Protocol for discontinuation/continuation of medication surrounding procedure discussed. Chronic and current use of high-risk medication (Opioids). The patient was counseled about risk of opioid use, psychological risk associated with opioids and was orally counseled to not overuse , divert or sell medications. Pt is to store medication in a safe location. The patient is counseled against driving while using narcotic medi cations and also not to use alcohol or any illicit recreational drugs. Patient verbalized understanding that the lack of compliance will result in failure to renew narcotic prescription(s) as well as possible discharge from the clinic Diagnoses, prognosis and treatment options including but not limited to physical therapy, surgical interventions, interventional therapies and medicat ion management including narcotics and adjuvant medication were discussed. All patient questions answered MAPS reviewed and it was appropriate. UDS fr 08/01/23 reviewed and consistent. Prescription refill for Lyrica 50mg #60 w 2 RF. Narcotic/ opiate agreement updated 08/01/23. I have spent less than 30 minutes on patient care today. Dr Bailey was available by phone for the evaluation of this patient. The time was used to review the medical records including relevant urine studies and Prescription history (MAPs), review of the available imaging, evaluation and examination of the patient, coordination of care with the medical staff and if applicable referring physicians, as well as creation of the medical record PQRS Narrative: Smoking Status Never smoker Narcotic Agreement Date Signed 08/01/23 Hx Alcohol Use (MH) Yes: occ Home Medications: Ambulatory Orders Omeprazole 40 mg PO BID 10/17/16 traMADol HCL [Ultram] 50 mg PO HS PRN 10/17/16 Famotidine [Pepcid] 20 mg PO BID 04/13/21 Losartan [Cozaar] 25 mg PO DAILY 04/25/23 Celecoxib [CeleBREX] 200 mg PO DAILY PRN 06/25/23 Pregabalin [Lyrica] 50 mg PO BID 30 Days #60 cap 05/19/24 Controlled Substance Measures - Controlled Substance Measures Is patient prescribed a controlled substance at discharge?: Yes When asked, does pt state using other controlled substances?: Yes If prescribed controlled substance>3 days was MAPS reviewed?: Yes
== END ==
LOC: PNWHC3 08:09
PROVIDERS: ATTEND Specialist
DX: M19.019 Primary osteoarthritis, unspecified shoulder
CPT/HCPCS: 99211

== ENCOUNTER → 2024-06-02 | Outpatient (CLI) | payer MEDICARE, BC | END | disposition home or self-care (01) | LOC: LABWHC1 10:31 | PROVIDERS: ATTEND Urology | DX: R97.20 Elevated prostate specific antigen [PSA] (principal) | CPT/HCPCS: 36415; 84153 ==

== ENCOUNTER 2024-06-03 08:38 | Day surgery (SDC) | payer MEDICARE, BC ==
[2024-06-03 09:06] VITALS: TEMP 98.5
[2024-06-03] MEDS ORDERED: methylPREDNISolone ACETATE 40 MG/ML 1 ML VIAL ONE (10:07)
[2024-06-03] MEDS ORDERED: ROPIVACAINE 5MG/ML 20ML VIAL ONE (10:07)
--- NOTE | 2024-06-03 10:22 | P.PCN ---
Date of Procedure: 06/03/24 Procedure(s) Performed: PROCEDURE: bilateral intraarticular shoulder joint injection under Fluroscopy guidance PREOPERATIVE DIAGNOSIS: bilateral shoulder osteoarthritis. POSTOPERATIVE DIAGNOSIS: Shoulder osteoarthritis. ANESTHESIA: Moderate sedation. local infiltration with lidocaine 1% 2 mL EBL: None. PROCEDURE INDICATION: Shoulder pain secondary to osteoarthritis. Discussed with the patient procedure, alternatives, complications which may include infection, bleeding, nerve damage. Patient understands and all questions were answered. PROCEDURE DESCRIPTION: After getting consent patient in OR in supine position. Right shoulder was prepped and draped in the usual sterile fashion. We used sterile gloves for the procedure. After spraying with ethyl chloride solution, a 25-gauge needle was introduced from the posterolateral corner of the acromion directly towards the coracoid process into the joint space needle placement confirmed under fluoroscopy. after Negative patient for blood , after negative paresthesia. 8 cc solution was injected after repeated negative aspiration w hich consists of 8 cc of 0.5% ropivacaine mixed with 20 mg of Depo-Medrol. After the injection needle was taken out and Band-Aid was applied. In exactly the same way left shoulder joint was injected with the same amount of solution. Needle was taken out and Band-Aid was applied. Skin was cleansed, and bandage was applied. DISPOSITION / PLANS: Patient tolerated the procedure well. No complication. The patient was taken back to recovery room in a stable position. . Patient was discharged from the recovery room, accompanied by an adult, after meeting discharge criteria. Home discharge instructions were given to the patient. The patient was reexamined prior to discharge. The patient will schedule a follow up visit in the clinic in 2-4 weeks.
[2024-06-03 10:38] VITALS: BP 163/74; PULSE 55; RESP 17
--- NOTE | 2024-06-10 18:22 | FL ---
EXAMINATION TYPE: FL guided pain mgmt statistic DATE OF EXAM: 06/03/2024 10:19 AM COMPARISON: Pre Operative Images if available both CT/MRI or plain film CLINICAL INDICATION: Male, 78 years old with history of PAIN; TECHNIQUE: Bilateral FL guided pain mgmt injection, multiple fluoroscopic images provided for procedu re. Total fluoroscopy time: 4.2 seconds Total submitted images to PACS: 2 DAP: [id number] mGym2 Gycm2 uGym2 cGycm2 FINDINGS: Fluoroscopic images during injection for pain management demonstrate mild degeneration changes of the shoulders with joint space narrowing and minimal osteophyte formation the glenoid. No evidence for f racture. No acute process identified. IMPRESSION: 1. No evidence for intraoperative complication. 2. Please see the operative/procedural note for further details. [facility], , 06/10/2024 6:19 PM
== END 2024-06-03 10:43 | disposition home or self-care (01) ==
LOC: ORPAIN 08:38
PROVIDERS: ATTEND Specialist
DX: M19.011 Primary osteoarthritis, right shoulder (principal); M19.012 Primary osteoarthritis, left shoulder; M19.019 Primary osteoarthritis, unspecified shoulder

== ENCOUNTER → 2024-08-11 | Outpatient (CLI) | payer MEDICARE, BC ==
[2024-08-11 07:51] VITALS: BP 130/84; PULSE 130; RESP 16; TEMP 96.9
--- NOTE | 2024-08-11 16:17 | P.PAINPG ---
PQRS Measure Charge Sheet Comment: A 78 yr old male with a history of severe and chronic neck pain secondary to radiculopathy, spondylosis with facet arthropathy without myelopathy, BL shoulder DJD presents today for medication refills and evaluation s/p BL intra articular shoulder injection #1. Pt states he experienced > 80% pain relief x 1 mo s/p procedure. Pain level is provoked at 4 /10 in intensity, constant, localized in the BL shoulders, achy in character without shooting pain. Pain is provoked by laying supine. Pain is alleviated with PT integrated w massage x 5 wks which ended in Feb 2024 (cervical, BL shoulder), physician guided stretches daily since Feb 2024 (cervical, BL shoulder), heat, ice, medications, repositioning and rest. Interventional pain procedures completed include BL shoulder x3, BL RFA L3-L5, BANG C6-C7 x1 Patient is currently on Celebrex, Lyrica, Tramadol Patient denies any side effects of the medication(s), denies excessive drowsiness or sleepiness, denies suicidal ideation and reports that the current pain medication is helping to control the pain and improve activities of daily living. Patient denies any motor or sensory deficits. Patient denies any fever or night sweats, denies any change in the bowel movements or urination. Physical Examination: -Constitutional: Cooperative. Not in acute distress . - Neurologic: Cranial nerve II to XII intact. No focal neurological deficits. - Psychatric: Alert & oriented x 3. Matching mood & appropriate affect. Judgment and insight intact. - Musculoskeletal: Cervical spine: BL AC/ GH joint line TTP Muscle bulk/ tone/ strength in the bilateral upper extremities normal Vertebral body tenderness to palpation Spurling test positive Distraction test positive C6-C7 Facet loading test positive TTP Thoracic spine Muscle bulk / tone/ strength in the bilateral paraspinal muscles normal Vertebral body tender to palpation over Facet loading test positive TTP Lumbar spine: Motor bulk/ tone/ strength lower extremities , thigh and legs : 5/5 Deep tendon reflexes : Normal Knee Jerk. Normal Ankle Jerk . Vertebral body tenderness to palpation over Lumbar Facet Loading Test positive Straight Leg Raise: positive at 30 degrees right side/ left side Gaenslen's Test positive Sacral spine : Severe tenderness over the Sacroiliac joint: right side / left side Range of motion: Flexion of the lumbar spine <60 degrees Range of motion: Extension of the lumbar spine <20 degrees Gaenslen's Test positive R / L Chang test: positive right side / left side Thigh Thrust Test positive R / L Sacral Thrust Test positive R/ L Imaging: MRI non contrast BL Shoulder from 05/06/24 L > R severe AC arthropathy & infraspinatus tendinosus Assessment and plan: Chronic BL shoulder, LBP secondary to radiculopathy, spondylosis with facet arthropathy without myelopathy, BL shoulder DJD Recommendation of medication management. Chronic and current use of high-risk medication (Opioids). The patient was counseled about risk of opioid use, psychological risk associated with opioids and was orally counseled to not overuse , divert or sell medications. Pt is to store medication in a safe location. The patient is counseled against driving while using narcotic medications and also not to use alcohol or any illicit recreational drugs. Patient verbalized understanding that the lack of compliance will result in failure to renew narcotic prescription(s) as well as possible discharge from the clinic Diagnoses, prognosis and treatment options including but not limited to physical therapy, surgical interventions, interventional therapies and medication management including narcotics and adjuvant medication were discussed. All patient questions answered MAPS reviewed and it was appropriate. UDS from 01/16/24 reviewed and consistent. Prescription refill for Lyrica 50mg #60 w 2 RF. Narcotic/ opiate agreement updated 08/11/24. I have spent less than 30 minutes on patient care today. Dr Bailey was available by phone for the evaluation of this patient. The time was used to review the medical records including relevant urine studies and Prescription history (MAPs), review of the available imaging, evaluation and examination of the patient, coordination of care with the medical staff and if applicable referring physicians, as well as creation of the medical record - Pain Location Bilateral Lower Back Non-Pharmacological Interventions: Inactivity, Physical Therapy, Position/Reposition, Sitting Pharmacological Interventions: Block, Epidural, PRN Medication, Scheduled Medi cation, Topical Medication PQRS Narrative: Smoking Status Never smoker Narcotic Agreement Date Signed 08/01/23 Hx Alcohol Use (MH) Yes: occ Home Medications: Ambulatory Orders Omeprazole 40 mg PO BID 10/17/16 traMADol HCL [Ultram] 50 mg PO HS PRN 10/17/16 Famotidine [Pepcid] 20 mg PO BID 04/13/21 Losartan [Cozaar] 25 mg PO DAILY 04/25/23 Celecoxib [CeleBREX] 200 mg PO DAILY PRN 06/25/23 Pregabalin [Lyrica] 50 mg PO BID 30 Days #60 cap 08/11/24 Controlled Substance Measures - Controlled Substance Measures Is patient prescribed a controlled substance at discharge?: Yes When asked, does pt state using other controlled substances?: Yes If prescribed controlled substance>3 days was MAPS reviewed?: Yes
== END ==
LOC: PNWHC3 07:25
PROVIDERS: ATTEND Specialist
DX: M47.26 Other spondylosis with radiculopathy, lumbar region (principal); M19.012 Primary osteoarthritis, left shoulder; M19.011 Primary osteoarthritis, right shoulder; M71.38 Other bursal cyst, other site; Z79.891 Long term (current) use of opiate analgesic
CPT/HCPCS: 99211

== ENCOUNTER → 2024-12-01 | Outpatient (CLI) | payer MEDICARE, BC ==
[2024-12-01 08:46] VITALS: BP 146/69; PULSE 55; RESP 15; TEMP 97.2
--- NOTE | 2024-12-01 14:43 | P.PAINPG ---
PQRS Measure Charge Sheet Comment: A 78 yr old male with a history of severe and chronic neck pain secondary to radiculopathy, spondylosis with facet arthropathy without myelopathy, BL shoulder DJD presents today for medication refills and evaluation s/p BL intra articular shoulder injection #1. Pt states he experienced > 80% pain relief x 1 mo s/p procedure. Pain level is provoked at 4 /10 in intensity, constant, localized in the BL shoulders, achy in character without shooting pain. Pain is provoked by laying supine. Pain is alleviated with PT integrated w massage x 5 wks which ended in Feb 2024 (cervical, BL shoulder), physician guided stretches daily since Feb 2024 (cervical, BL shoulder), heat, ice, medications, repositioning and rest. Interventional pain procedures completed include BL shoulder x3, BL RFA L3-L5, BANG C6-C7 x1 Patient is currently on Celebrex, Lyrica, Tramadol Patient denies any side effects of the medication(s), denies excessive drowsiness or sleepiness, denies suicidal ideation and reports that the current pain medication is helping to control the pain and improve activities of daily living. Patient denies any motor or sensory deficits. Patient denies any fever or night sweats, denies any change in the bowel movements or urination. Physical Examination: -Constitutional: Cooperative. Not in acute distress . - Neurologic: Cranial nerve II to XII intact. No focal neurological deficits. - Psychatric: Alert & oriented x 3. Matching mood & appropriate affect. Judgment and insight intact. - Musculoskeletal: Cervical spine: BL AC/ GH joint line TTP Muscle bulk/ tone/ strength in the bilateral upper extremities normal Vertebral body tenderness to palpation Spurling test positive Distraction test positive C6-C7 Facet loading test positive TTP Thoracic spine Muscle bulk / tone/ strength in the bilateral paraspinal muscles normal Vertebral body tender to palpation over Facet loading test positive TTP Lumbar spine: Motor bulk/ tone/ strength lower extremities , thigh and legs : 5/5 Deep tendon reflexes : Normal Knee Jerk. Normal Ankle Jerk . Vertebral body tenderness to palpation over Lumbar Facet Loading Test positive Straight Leg Raise: positive at 30 degrees right side/ left side Gaenslen's Test positive Sacral spine : Severe tenderness over the Sacroiliac joint: right side / left side Range of motion: Flexion of the lumbar spine <60 degrees Range of motion: Extension of the lumbar spine <20 degrees Gaenslen's Test positive R / L Chang test: positive right side / left side Thigh Thrust Test positive R / L Sacral Thrust Test positive R/ L Imaging: MRI non contrast BL Shoulder from 05/06/24 L > R severe AC arthropathy & infraspinatus tendinosus Assessment and plan: Chronic BL shoulder, LBP secondary to radiculopathy, spondylosis with facet arthropathy without myelopathy, BL shoulder DJD Recommendation of medication management. Chronic and current use of high-risk medication (Opioids). The patient was counseled about risk of opioid use, psychological risk associated with opioids and was orally counseled to not overuse , divert or sell medications. Pt is to store medication in a safe location. The patient is counseled against driving while using narcotic medications and also not to use alcohol or any illicit recreational drugs. Patient verbalized understanding that the lack of compliance will result in failure to renew narcotic prescription(s) as well as possible discharge from the clinic Diagnoses, prognosis and treatment options including but not limited to physical therapy, surgical interventions, interventional therapies and medication management including narcotics and adjuvant medication were discussed. All patient questions answered MAPS reviewed and it was appropriate. UDS collected 12/01/24. Prescription refill for Lyrica 50mg #60 w 2 RF. Narcotic/ opiate agreement updated 08/11/24. I have spent less than 30 minutes on patient care today. Dr Bailey was available by phone for the evaluation of this patient. The time was used to review the medical records including relevant urine studies and Prescription history (MAPs), review of the available imaging, evaluation and examination of the patient, coordination of care with the medical staff and if applicable referring physicians, as well as creation of the medical record PQRS Narrative: Smoking Status Never smoker Narcotic Agreement Date Signed 08/11/24 Hx Alcohol Use (MH) Yes: occ Home Medications: Ambulatory Orders Omeprazole 40 mg PO BID 10/17/16 traMADol HCL [Ultram] 50 mg PO HS PRN 10/17/16 Famotidine [Pepcid] 20 mg PO BID 04/13/21 Losartan [Cozaar] 25 mg PO DAILY 04/25/23 Celecoxib [CeleBREX] 200 mg PO DAILY PRN 06/25/23 Pregabalin [Lyrica] 50 mg PO BID 30 Days #60 cap 12/01/24 Controlled Substance Measures - Controlled Substance Measures Is patient prescribed a controlled substance at discharge?: Yes When asked, does pt state using other controlled substances?: No If prescribed controlled substance>3 days was MAPS reviewed?: Yes
== END ==
LOC: PNWHC3 07:28
PROVIDERS: ATTEND Specialist
DX: M47.26 Other spondylosis with radiculopathy, lumbar region (principal); M19.011 Primary osteoarthritis, right shoulder; M19.012 Primary osteoarthritis, left shoulder; Z79.891 Long term (current) use of opiate analgesic
CPT/HCPCS: 80307; G0463; 99212

== ENCOUNTER → 2025-02-23 | Outpatient (CLI) | payer MEDICARE, BC ==
[2025-02-23 07:49] VITALS: BP 145/81; PULSE 51; RESP 16; TEMP 97.7
--- NOTE | 2025-02-23 15:41 | P.PAINPG ---
Objective - Vital Signs Vital signs: Intake & Output 02/22/25 02/23/25 02/23/25 18:59 06:59 18:59 Weight 79.379 kg PQRS Measure Charge Sheet Comment: A 78 yr old male with a history of severe and chronic neck pain secondary to radiculopathy, spondylosis with facet arthropathy without myelopathy, BL shoulder DJD presents today for medication refills. Pain level is provoked at 4 /10 in intensity, constant, localized in the BL shoulders, achy in character without shooting pain. Pain is provoked by laying supine. Pain is alleviated with PT integrated w massage x 5 wks which ended in Feb 2024 (cervical, BL shoulder), physician guided stretches daily since Feb 2024 (cervical, BL shoulder), heat, ice, medications, repositioning and rest. Interventional pain procedures completed include BL shoulder x3 (11/04), BL RFA L3-L5, BANG C6-C7 x1 Patient is currently on Celebrex, Lyrica, Tramadol Patient denies any side effects of the medication(s), denies excessive drowsiness or sleepiness, denies suicidal ideation and reports that the current pain medication is helping to control the pain and improve activities of daily living. Patient denies any motor or sensory deficits. Patient denies any fever or night sweats, denies any change in the bowel movements or urination. Physical Examination: -Constitutional: Cooperative. Not in acute distress . - Neurologic: Cranial nerve II to XII intact. No focal neurological deficits. - Psychatric: Alert & oriented x 3. Matching mood & appropriate affect. Judgment and insight intact. - Musculoskeletal: Cervical spine: BL AC/ GH joint line TTP Muscle bulk/ tone/ strength in the bilateral upper extremities normal Vertebral body tenderness to palpation Spurling test positive Distraction test positive C6-C7 Facet loading test positive TTP Thoracic spine Muscle bulk / tone/ strength in the bilateral paraspinal muscles normal Vertebral body tender to palpation over Facet loading test positive TTP Lumbar spine: Motor bulk/ tone/ strength lower extremities , thigh and legs : 5/5 Deep tendon reflexes : Normal Knee Jerk. Normal Ankle Jerk . Vertebral body tenderness to palpation over Lumbar Facet Loading Test positive Straight Leg Raise: positive at 30 degrees right side/ left side Gaenslen's Test positive Sacral spine : Severe tenderness over the Sacroiliac joint: right side / left side Range of motion: Flexion of the lumbar spine <60 degrees Range of motion: Extension of the lumbar spine <20 degrees Gaenslen's Test positive R / L Chang test: positive right side / left side Thigh Thrust Test positive R / L Sacral Thrust Test positive R/ L Imaging: MRI non contrast BL Shoulder from 05/06/24 L > R severe AC arthropathy & infraspinatus tendinosus Assessment and plan: Chronic BL shoulder, LBP secondary to radiculopathy, spondylosis with facet arthropathy without myelopathy, BL shoulder DJD Recommendation of medication management. Chronic and current use of high-risk medication (Opioids). The patient was counseled about risk of opioid use, psychological risk as sociated with opioids and was orally counseled to not overuse , divert or sell medications. Pt is to store medication in a safe location. The patient is counseled against driving while using narcotic medications and also not to use alcohol or any illicit recreational drugs. Patient verbalized understanding that the lack of compliance will result in failure to renew narcotic prescription(s) as well as possible discharge from the clinic Diagnoses, prognosis and treatment options including but not limited to physical therapy, surgical interventions, interventional therapies and medication management including narcotics and adjuvant medication were discussed. All patient questions answered MAPS reviewed and it was appropriate. UDS from 12/01/24 reviewed and consistent. Prescription refill for Lyrica 50mg #60 w 2 RF. Narcotic/ opiate agreement updated 08/11/24. I have spent less than 30 minutes on patient care today. Dr Bailey was available by phone for the evaluation of this patient. The time was used to review the medical records including relevant urine studies and Prescription history (MAPs), review of the available imaging, evaluation and examination of the patient, coordination of care with the medical staff and if applicable referring physicians, as well as creation of the medical record PQRS Narrative: Smoking Status Never smoker Narcotic Agreement Date Signed 08/11/24 Hx Alcohol Use (MH) Yes: occ Home Medications: Ambulatory Orders Omeprazole 40 mg PO BID 10/17/16 traMADol HCL [Ultram] 50 mg PO HS PRN 10/17/16 Famotidine [Pepcid] 20 mg PO BID 04/13/21 Losartan [Cozaar] 25 mg PO DAILY 04/25/23 Celecoxib [CeleBREX] 200 mg PO DAILY PRN 06/25/23 Pregabalin [Lyrica] 50 mg PO BID 30 Days #60 cap 02/23/25 Controlled Substance Measures - Controlled Substance Measures Is patient prescribed a controlled substance at discharge?: Yes If prescribed controlled substance>3 days was MAPS reviewed?: Yes
== END ==
LOC: PNWHC3 07:31
PROVIDERS: ATTEND Specialist
DX: M47.26 Other spondylosis with radiculopathy, lumbar region (principal); M19.012 Primary osteoarthritis, left shoulder; M19.011 Primary osteoarthritis, right shoulder; M71.38 Other bursal cyst, other site
CPT/HCPCS: 99211